=== PATIENT | female | born 1935 | race Caucasian/White ===

== ENCOUNTER 2017-05-08 12:41 | Inpatient (IN) | payer MEDICARE, OTHER ==
[~2017-05-08] VITALS: Ht 157.5 cm; Wt 80.3 kg
[~2017-05-08 12:41] MED LIST: ASP81TEC PO; BTH25T1 PO; CALC-793 PO; CELEBREX; CITA20TA4 PO; DCS100C PO; FEXO-104 PO; FEXO60TA PO; FURO20TA4 PO; HYDR1TAB75 PO; IBP800T PO; KCL20TCR PO; LVF250T PO; MELO-198 PO; NICO1PAT38 TD; POTA10CA43 PO; RLX60T PO
[2017-05-08] MEDS ORDERED: BACLOFEN 10 MG (LIORESAL) TAB PO PRN (14:45)
[2017-05-08] MEDS ORDERED: HYDROcodone/APAP 5 MG/325 MG (LORTAB) TAB PO PRN (14:45)
--- NOTE | 2017-05-08 15:12 | Physical Therapy Evaluation ---
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 Returned to [facility] and received pain medication and is currently at [facility] per family report Reviewed History: Yes Social History Home: Single Level Current Living Status: Other Family Entry Into Home: Stairs Without Railing PT Steps Into Home: 2 Prior/Core FIM Prior Level of Function Functional Anderson Measure 0=Not Assessed/NA 4=Minimal Assistance 1=Total Assistance 5=Supervision or Setup 2=Maximal Assistance 6=Modified Anderson 3=Moderate Assistance 7=Complete Anderson Bed Mobility: 7 Transfers (B,C,W/C) (FIM): 7 Gait: 7 PT Evaluation-Current Subjective Patient is very agreeable to participate with therapy. Patient denies cervical pain at this time. Pain Numeric Pain Scale: 0-No Pain Location: No Pain Reported Objective Patient Orientation: Normal For Age Problem Solving: Good ROM/Strength ROM Lower Extremities bilateral LE WNL Strenght Lower Extremities right knee flexion/extension 4+/5; hip flexion 4+/5 DF/PF 4+/5 left knee flexion/extension 4+/5;hip flexion 4+/5; DF/PF 4+/5 Integumentary/Posture Integumentary refer to nursing notes Sensory Vision: Functional Hearing: Functional Sensation Right Lower Extremit: Intact Sensation Left Lower Extremity: Intact Transfers Functional Anderson Measure 0=Not Assessed/NA 4=Minimal Assistance 1=Total Assistance 5=Supervision or Setup 2=Maximal Assistance 6=Modified Anderson 3=Moderate Assistance 7=Complete IndependenceIRFPAI Quality Coding Scale 6 Independent with activity with or without an assistive device 5 Patient requires set up or clean up by helper. Patient completes activity by themselves 4 Supervision or touching assist (CGA). [place] provide cues , steadying assist 3 The helper provides less than half the effort to complete the activity 2 The helper provides more than half the effort to complete the activity 1 Dependent. The helper does all the effort to complete an activity 7 Patient refused to complete or attempt activity 9 The patient did not perform the activity before the current illness or injury 88 Not attempted due to Medical conditions or safety concerns Transfers (B, C, W/C) (FIM): 6 Scootin Rollin Roll Left to Right (QC): 6 Supine to/from Sit: 7 Sit to/from Stand: 6 Sit to Lying (QC): 6 Lying to Sitting/Side of Bed(Q: 6 Sit to Stand (QC): 6 Chair/Was-rl-Cquxf Xfer(QC): 6 Car Transfer (QC): 6 Gait Does the Patient Walk?: Yes Mode of Locomotion: Walk Anticipated Mode of Locomotion: Walk Gait (FIM): 6 Distance (FIM): 3=150 ft Walk 10 feet (QC): 6 Walk 50 ft with 2 Turns(QC): 6 Walk 150 ft (QC): 6 Walking 10ft/uneven surface-QC: 6 Distance: 150' x 3 Gait Level of Assist: 6 Gait Assistive Device: FWW Comments/Gait Description safe, reciprocal pattern with FWW Stairs Stairs (FIM): 6 #of Steps: 12 Level of Assist: 6 1 Step (curb) (QC): 6 4 Steps (QC): 6 12 Steps (QC): 6 reciprocal pattern ascending and descending Balance Sitting Static: Normal Sitting Dynamic: Normal Standing Static: Normal Standing Dynamic: Normal Assessment/Needs 82 y.o. female, is currently at [facility] with all gross motor skills. Patient would benefit from FWW for use at home for stability and safety. Rehab Potential: Good PT Plan Treatment/Plan Treatment Plan: Discontinue PT, goals met Treatment Plan: Concurrent Therapy, Education, Functional Strength, Group Therapy, Gait, Safety, Therapeutic Exercise Treatment Duration: May 09, 2017 Frequency: 1 time per week Estimated Hrs Per Day: .25 hour per day Patient and/or Family Agrees t: Yes Discharge Recommendations Therapy D/C Recommendations: Home w/ Family Support Time/GCodes Time In: 1440 Time Out: 1455 Total Billed Treatment Time: 15 Total Billed Treatment 1 visit EVModC 15 min INO OLEARY PT May 08, 2017 15:12
--- NOTE | 2017-05-08 15:17 | ST Cognitive Linguistic Eval ---
Speech Evaluation-General Medical Diagnosis ACDF Procedure Onset Date: May 03, 2017 Therapy Diagnosis Therapy Diagnosis: Cognitive Linguistic Skills Grossly WNL Referral Referring Physician: Dr. Dio La Reason for Referral: Evaluation/Treatment Cognitive Evaluation Speech PLF-Current Status Prior Level of Function The patient denied prior challenges with speech, language, or cognition. Subjective The patient was recently admitted to [facility] following an ACDF procedure. The patient greeted the clinician appropriately and was agreeable to participation in the cognitive evaluation. Language Eval: Auditory Comprehends Simple Yes/No Ques: Functional Indent/Objects Multiple Suarez: Functional Ident/Pics in Multiple Suarez: Functional Follows 1-Step Commands: Functional Follows Complex Directions: Functional Follows General Conversations: Functional Language Eval: Verbal Language Completes Spontaneous Greeting: Functional Produces Auto, Serial Info: Functional Imitates Simple Words/Phrases: Functional Word Finding: Functional Requests Basic Needs: Functional States Basic Personal Info: Functional Expresses Complex Ideas: Functional Cognitive Patient Orientation The patient independently recalls name, location, rationale for rehabilitation, month, day of week, and year. Objective Cognitive Domain Attention: WNL Memory: Mild (The patient displays intermittent confusion, however, appears grossly normal and appropriate for age.) Problem Solving: Functional Objective Impression The patient displays cognitive linguistic skills grossly within normal limits for age and appropriate for completion of ADL's. Communication/Social Cognition Comprehension: 5 Expression: 6 Social Interaction: 7 Problem Solvin Memory: 5 Speech Patient Assess Expression of Ideas/Wants: Expression (4) Understanding Vebal Content: Understands (4) Brief Interview-Mental Status: Yes Repetition of Three Words: Three (3) Temporal Orientation: Year: Correct (3) Temporal Orientation: Month: Accurate within 5 days(2) Temporal Orientation: Day: Correct (1) Recall : Wear to say "Sock": Yes, no cue required (2) Recall : Color: Yes, no cue required (2) Recall : Bed: Yes, no cue required (2) Speech-Plan Treatment Plan Speech Therapy Treatment Plan: Discontinue ST Evaluation, only. Frequency: Modified Program (IRF) Estimated Hrs Per Day: Other Rehab Potential: Good Safety Risks/Education Teaching Recipient: Patient Teaching Methods: Discussion Response to Teaching: Verbalize Understanding Education Topics Provided: Results, Recommendations, Plan of Care Time Speech Therapy Time In: 14:55 Speech Therapy Time Out: 15:10 Total Billed Time: 15 Billed Treatment Time 1, SPSNDRYANN TROY May 08, 2017 15:17
[2017-05-08] MEDS ORDERED: CA C1TAB78 PO (15:52)
[2017-05-08] MEDS ORDERED: POTA10CA43 PO (15:52)
[2017-05-08] MEDS ORDERED: HYDR-3812 PO (15:52)
[2017-05-08] MEDS ORDERED: TERI202.4P SQ (15:52)
[2017-05-08] MEDS ORDERED: BACL10TA PO (15:52)
[2017-05-08] MEDS ORDERED: MULT-35 PO (15:52)
[2017-05-08] MEDS ORDERED: CHOL20003 PO (15:52)
--- NOTE | 2017-05-08 16:06 | Occupational Therapy Eval ---
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 Reviewed History: Yes Social History Home: Single Level Current Living Status: Other Family Entry Into Home: Stairs Without Railing Steps Into Home: 2 ADL-Prior Level of Function ADL PLOF Comments Pt reports being independent with self care and mobility prior to surgery. Pt states she is able to complete administrative and program specialist. Drives. Does not use any assistive devices. DME/Equipment: Bath Chair (shower stool), Grab Bars, Tub/Shower Drive Self: Yes OT Current Status Subjective Pt sitting EOB, agrees to therapy. Pt has no c/o pain at this time. Mental Status/Objective Patient Orientation: Person, Place, Situation Current Glasses/Contacts: Yes (reading) Hearing Aids: Yes Dentures/Partials: No Hand Dominance: Right Upper Extremity ROM Grossly WFL Upper Extremity Coordination Intact Upper Extremity Sensation Intact per pt report Upper Extremity Strength MMT not completed secondary to recent cervical surgery. Strength appears to be functional. ADL-Treatment ADL-Current ADL assessment to be completed. Functional Tiger Measure 0=Not Assessed/NA 4=Minimal Assistance 1=Total Assistance 5=Supervision or Setup 2=Maximal Assistance 6=Modified Tiger 3=Moderate Assistance 7=Complete IndependenceIRFPAI Quality Coding Scale 6 Independent with activity with or without an assistive device 5 Patient requires set up or clean up by helper. Patient completes activity by themselves 4 Supervision or touching assist (CGA). Jansen provide cues , steadying assist 3 The helper provides less than half the effort to complete the activity 2 The helper provides more than half the effort to complete the activity 1 Dependent. The helper does all the effort to complete an activity 7 Patient refused to complete or attempt activity 9 The patient did not perform the activity before the current illness or injury 88 Not attempted due to Medical conditions or safety concerns Education OT Patient Education: Rehab process Teaching Recipient: Patient Teaching Methods: Discussion Response to Teaching: Verbalize Understanding OT Short Term Goals Short Term Goals 1=Demonstrate adherence to instructed precautions during ADL tasks. 2=Patient will verbalize/demonstrate understanding of assistive devices/ modifications for ADL. 3=Patient will improve strength/tolerance for activity to enable patient to perform ADL's. OT Group Home Goals Brainer Goals Time Frame: May 09, 2017 Eating (FIM): 6 Eating (QC): 6 Groomin Oral Hygiene (QC): 6 Bathing(FIM): 6 Shower/Bathe Self (QC): 6 Upper Body Dressing(FIM): 6 Upper Body Dressing (QC): 6 Lower Body Dressing(FIM): 6 Lower Body Dressing (QC): 6 On/Off Footwear (QC): 6 Toileting(FIM): 6 Toileting Hygiene (QC): 6 Toilet/Commode Transfer(FIM): 6 Toilet/Commode Transfer (QC): 6 Shower Transfer(FIM): 6 1=Demonstrate adherence to instructed precautions during ADL tasks. 2=Patient will verbalize/demonstrate understanding of assistive devices/ modifications for ADL. 3=Patient will improve strength/tolerance for activity to enable patient to perform ADL's. OT Education/Plan Problem List/Assessment Will further assess ADLs. Discharge Recommendations Plan/Recommendations: Continue POC Treatment Plan/Plan of Care Treatment,Training & Education: Yes Patient would benefit from OT for education, treatment and training to promote independence in ADL's, mobility, safety and/or upper extremity function for ADL' s. Plan of Care: ADL Retraining Comment DIAZ to address ADLs Treatment Duration: May 09, 2017 Frequency: Modified Program (IRF) Estimated Hrs Per Day: Other Agreement: Yes Rehab Potential: Good Time/GCodes Start Time: 14:25 Stop Time: 14:40 Total Time Billed (hr/min): 15 Billed Treatment Time 1, visit, EVL(15minutes) PATEL ORTIZ OT May 08, 2017 16:06
--- NOTE | 2017-05-08 16:19 | Occupational Ther Daily Note ---
OT Current Status-Daily Note Subjective Pt alert, walking with FWW around [facility] area. Pt agreed to therapy. No c /o pain. Mental Status/Objective Patient Orientation: Person, Place, Time, Situation Functional Pratt Measure 0=Not Assessed/NA 4=Minimal Assistance 1=Total Assistance 5=Supervision or Setup 2=Maximal Assistance 6=Modified Pratt 3=Moderate Assistance 7=Complete Pratt ADL-Treatment Functional Pratt Measure 0=Not Assessed/NA 4=Minimal Assistance 1=Total Assistance 5=Supervision or Setup 2=Maximal Assistance 6=Modified Pratt 3=Moderate Assistance 7=Complete IndependenceIRFPAI Quality Coding Scale 6 Independent with activity with or without an assistive device 5 Patient requires set up or clean up by helper. Patient completes activity by themselves 4 Supervision or touching assist (CGA). [place] provide cues , steadying assist 3 The helper provides less than half the effort to complete the activity 2 The helper provides more than half the effort to complete the activity 1 Dependent. The helper does all the effort to complete an activity 7 Patient refused to complete or attempt activity 9 The patient did not perform the activity before the current illness or injury 88 Not attempted due to Medical conditions or safety concerns Grooming (FIM): 6 (Standing at sink, pt is able to complete by self.) Oral Hygiene (QC): 6 Bathing (FIM): 6 (Using shower bench, grabbars and hand held shower pt able to complete bathing by self.) Bathing Location: L Arm, R Arm, L Upper Leg, R Upper Leg, L Lower Leg ( including foot), R Lower Leg (including foot), Chest, Abdomen, Buttocks, Perineal Area Shower/Bathe Self (QC): 6 Upper Body (FIM): 6 (Pt able to transport clothing with FWW and dons/doff by self.) Upper Body Dressing (QC): 6 Lower Body Dressing (FIM): 6 (Pt able to transport clothing with FWW and dons/ doff by self.) Lower Body Dressing (QC): 6 (Pt able to transport clothing with FWW and dons/ doff by self.) On/Off Footwear (QC): 6 Toileting (FIM): 6 (Pt able to manipulate clothing and cleanse self using grabbars and FWW.) Toileting Hygiene (QC): 6 Transfers (B, C, W/C) (FIM): 6 (Using FWW, pt is able to complete by self.) Toilet/Commode Transfer (FIM): 6 (Using grabbars and FWW, pt is able to complete by self.) Toilet Transfer (QC): 6 Shower Transfer(FIM): 6 (Using grabbars and shower bench pt is able to complet by self.) OT Short Term Goals Short Term Goals 1=Demonstrate adherence to instructed precautions during ADL tasks. 2=Patient will verbalize/demonstrate understanding of assistive devices/ modifications for ADL. 3=Patient will improve strength/tolerance for activity to enable patient to perform ADL's. OT Alf Goals Urology Surgeon Goals 1=Demonstrate adherence to instructed precautions during ADL tasks. 2=Patient will verbalize/demonstrate understanding of assistive devices/ modifications for ADL. 3=Patient will improve strength/tolerance for activity to enable patient to perform ADL's. OT Education/Plan Discharge Recommendations Plan/Recommendations: Continue POC Treatment Plan/Plan of Care Patient would benefit from OT for education, treatment and training to promote independence in ADL's, mobility, safety and/or upper extremity function for ADL' s. Treatment Duration: May 09, 2017 Frequency: Modified Program (IRF) Estimated Hrs Per Day: Other Rehab Potential: Good Time/GCodes Start Time: 15:20 Stop Time: 16:00 Total Time Billed (hr/min): 40 Billed Treatment Time 1 visit-ADL 3 (40 min) JUSTIN EVERETT May 08, 2017 16:19
[2017-05-08 17:01] VITALS: BP 146/72
--- NOTE | 2017-05-08 17:54 | HISTORY AND PHYSICAL ---
DATE OF SERVICE: CHIEF COMPLAINT: Difficulty with walking. HISTORY OF PRESENT ILLNESS: The patient is an 82-year-old female who has been independent, but having increasing cervical spine pain that was impacting on her daily routine who was admitted to [facility] on 05/03 for anterior cervical complete diskectomy and fusion of C4-5 and C5-6, application of anterior [employer] instrumentation C4-C5, C5-C6, application of PEEK cervical interbody spacer, C4-C5, C5-C6, use of human allograft, use of local bone allograft, who did well postop, went home on Sunday, the , but had increasing pain, making it difficult for her to mobilize. She was reassessed at [facility] in [place], [place], where she had her surgery and readmitted for pain management. She had general debilitation from this and she is now referred to inpatient rehabilitation unit. Apparently, she has done well in the past 24 hours and is essentially modified independent and with low pain levels when utilizing hydrocodone/APAP. PAST MEDICAL HISTORY: Osteoporosis, osteoarthritis. PAST SURGICAL HISTORY: Complete hysterectomy in 2011, bladder sling 2011, hammertoe, cholecystectomy in 1975. ALLERGIES: CODEINE. FAMILY HISTORY: Cancer. SOCIAL HISTORY: History of tobaccoism, none now. Rare ethanol. Retired from [employer]. She presents to rehab unit with her spouse who is very supportive. They live in [place], [place]. She did not use a gait aid prior to this. REVIEW OF SYSTEMS: Mild neck pain. Slight gait imbalance. She is essentially modified independent with a wheeled walker at this point and using a soft cervical collar. MEDICATIONS: Forteo 250 mcg subcutaneously at bedtime for osteoporosis, KCl 10 mEq p.o. daily, calcium with magnesium 1 tablet p.o. daily, multivitamins 1 tablet p.o. daily, vitamin D3 2000 units p.o. weekly, baclofen 10 mg p.o. t.i.d. p.r.n. spasm, hydrocodone/APAP 5/325 mg 2 tablets p.o. q.4h. as needed for pain. PHYSICAL EXAMINATION: GENERAL: A pleasant female appearing her stated age, alert and oriented, in no acute distress. VITAL SIGNS: Within normal limits. She is afebrile. HEENT: Vision, speech and hearing are grossly intact. No oral lesion is noted. NECK: Incision site is healing well. Soft cervical collar in place. HEART: Regular rate and rhythm. CHEST: Clear. ABDOMEN: Soft, nontender. Bowel sounds present. EXTREMITIES: No leg edema. No calf tenderness. MUSCULOSKELETAL: The patient has functional active range of motion in all 4 extremities. NEUROLOGIC: Sensation is grossly intact to touch. Coordination intact. Cognition intact. Strength good throughout. IMPRESSION: 1. 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 2. Poorly controlled postop pain, now better controlled. 3. Osteoporosis, on Forteo. 4. Remote history of tobaccoism. 5. OA 6. Postop constipation PLAN: The patient at this point is admitted for overnight stay as she has made such a remarkable improvement, which was not evident on preadmission screen of the patient from outside facility. The patient will have the PT, OT assessment and any further recommendations for home exercise program. The patient will be provided a prescription referral for home health care and will have followup with ANAHY Meza of [facility] and Dr. Rachel, ortho spine. DIET: Regular. CODE STATUS: Full code. PROGNOSIS: Good for return to independent living with some assistance from spouse as needed. Home health care PT can advance her from WW to cane as appropriate.. POST-ADMISSION PHYSICIAN ASSESSMENT: The preadmission screen does not agree with the post-admission assessment at this point as the patient is essentially modified independent with good pain control. The patient was referred from an outside facility and the patient improved was not expected to improve so rapidly. It was difficult to poultry picker that the patient could have gone home directly with home health care. ESTIMATED LENGTH OF STAY: 24 hours with a discharge set for tomorrow with home health. She will follow up with her PA, Mabel Bermudez and Dr. Rachel, ortho spine. Job ID: [id number] DocumentID: [id number] Dictated Date: 05/08/2017 16:53:20 Surgical Instrument Maker Date: 05/08/2017 17:53:24 Dictated By: PHILLIP GRACE MD [facility]
[2017-05-08] MEDS: SENNA W/DOCUSATE (SENOKOT S) TABLET PO SCH (20:56)
[2017-05-08] MEDS ORDERED: TERIPARATIDE 600 MCG/2.4 ML (FORTEO) SYR SQ SCH (21:00)
[2017-05-09] MEDS ORDERED: SENNA W/DOCUSATE (SENOKOT S) TABLET ONE (05:43)
[2017-05-09 06:00] VITALS: BP 164/74
[2017-05-09] MEDS: SENNA W/DOCUSATE (SENOKOT S) TABLET PO SCH (06:05)
[2017-05-09] MEDS ORDERED: KCL 10 MEQ TAB (MICRO K) PO SCH (07:00)
[2017-05-09] MEDS ORDERED: MULTIVIT W/MINERALS TAB (THERAGRAN M) PO SCH (07:00)
[2017-05-09 08:16] VITALS: BP 154/78
[2017-05-09] MEDS ORDERED: LACT20SO2 PO (10:32)
--- NOTE | 2017-05-09 10:38 | Consultation-Hospitalist ---
HPI History of Present Illness: HPI/Chief Complaint CC: Medical management of severe debility following cervical spine surgery 2 weeks ago HPI: This is an 82-year-old white female known to me from admission after cervical spine surgery at [facility] and [place] with essentially minimal medical problems that include osteoporosis and osteoarthritis that presented to the inpatient rehabilitation facility after eating directly admitted after seen by Dr. Rachel and found to have failure to thrive and severe dehydration and severe pain. Apparently she had gone home with her indoor landscape architect but had gradually worsened to the point that she was unable to eat or drink was found to be dehydrated placed on IV fluids and admitted to [facility]. Her cousin was very apologetic about not being able to take care of her properly at home and patient was very distraught about being so debilitated. She was set up for inpatient rehabilitation transfer either to via [facility] or [place] and sister were no beds in [place] she was transferred to via [facility] yesterday but rapidly improved overnight to the extent that she no longer needed any type of therapy or assistance in the inpatient rehabilitation unit. Her recovery was unexpected and was maintained yesterday afternoon and today and although constipation continues to be an issue she does have bowel sounds on exam and ready to go home after the walker is delivered. Source: patient, RN/MD Exam Limitations: no limitations Date Seen 05/09/17 Attending Physician Dio La MD PCP No,Local Physician Referring Physician Date of Admission May 08, 2017 at 14:25 Home Medications & Allergies Home Medications Reviewed patient Home Medication Reconciliation Form Allergies Allergies Coded Allergies Codeine (Unverified Allergy06/10/10) Past Wiupate-Ogzoop-Jrmtlh Hx Patient Social History Marrital Status: single Employed/Student: retired Alcohol Use: Occasionally Uses Recreational Drug Use: No Smoking Status: Former Smoker Former Smoker, Quit: May 08, 2013 Physical Abuse Screen: No Sexual Abuse: No Recent Foreign Travel: No Contact w/other who traveled: No Recent Hopitalizations: Yes Recent Infectious Disease Expo: No Immunizations Up To Date Date of Pneumonia Vaccine: Feb 06, 2014 Date of Influenza Vaccine: Feb 18, 2017 Seasonal Allergies Seasonal Allergies: No Surgeries Yes (bladder sling, cervical spine) Respiratory No Cardiovascular No Neurological No Reproductive System Hx Reproductive Disorders: Yes (UTEROVAGINAL PROLAPSE) Genitourinary No Gastrointestinal No Musculoskeletal Yes (osteoarthritis) Osteoporosis Endocrine History of Endocrine Disorders: No HEENT History of HEENT Disorders: No Cancer No Psychosocial History of Psychiatric Problem: No Integumentary History of Skin or Integumenta: No Blood Transfusions History of Blood Disorders: No Adverse Reaction to a Blood Tr: No Family Medical History Family Hx: FH: cancer G8 SISTER Review of Systems Constitutional: see HPI, weakness EENTM: no symptoms reported Respiratory: no symptoms reported Cardiovascular: no symptoms reported Gastrointestinal: constipation Genitourinary: no symptoms reported Musculoskeletal: neck pain Skin: no symptoms reported Psychiatric/Neurological: No Symptoms Reported All Other Systems Reviewed Negative Unless Noted: Yes Physical Exam Physical Exam Vital Signs Vital Sign - Last 12Hours 05/08/17 05/08/17 16:12 17:01 Temp 97.8 Pulse 80 Resp 18 B/P (MAP) 146/72 (96) Pulse Ox 93 O2 Delivery Room Air Capillary Refill : General Appearance: No Apparent Distress, WD/WN, Chronically ill Eyes: Bilateral Eye Normal Inspection, Bilateral Eye PERRL HEENT: PERRL/EOMI, Normal ENT Inspection, Pharynx Normal Neck: Full Range of Motion, Normal Inspection, Non Tender, Supple, Carotid Bruit Respiratory: Chest Non Tender, Lungs Clear, Normal Breath Sounds, No Accessory Muscle Use, No Respiratory Distress Cardiovascular: Regular Rate, Rhythm, No Edema, No Gallop, No JVD, No Murmur, Normal Peripheral Pulses Gastrointestinal: Normal Bowel Sounds, No Organomegaly, No Pulsatile Mass, Non Tender, Soft Back: Normal Inspection, No CVA Tenderness, No Vertebral Tenderness, Decreased Range of Motion (of neck) Extremity: Normal Capillary Refill, Normal Inspection, Normal Range of Motion, Non Tender, No Calf Tenderness, No Pedal Edema Neurologic/Psychiatric: Alert, Oriented x3, No Motor/Sensory Deficits, Normal Mood/Affect Skin: Normal Color, Warm/Dry Lymphatic: No Adenopathy Assessment/Plan Admission Diagnosis Assessment: Severe debility following cervical spine surgery by Dr. Rachel 2 weeks ago at [facility] requiring inpatient rehabilitation management but recovery was extremely rapid and is discharged home today with home health and a walker Postop constipation managed with lactulose and prune juice and suppository with bowel sounds on exam Osteoporosis Osteoarthritis Poor memory recall Assessment and Plan Plan: Lactulose to [facility] Pain medication at discharge Home health Walker Monitor closely and discharge home Clinical Quality Measures DVT/VTE Risk/Contraindication: Risk Factor Score Per Nursin RFS Level Per Nursing on Admit: 2=Moderate CARLOS SAMPSON DO May 09, 2017 10:38
[2017-05-09 10:45] VITALS: BP 154/78
--- NOTE | 2017-05-09 11:00 | PM & R (SOAP) Progress Note ---
Subjective Time Seen by Provider: 09:45 Subjective/Events-last exam Patient was seen in her room this AM All set for discharge RX for DME and HHC provided Slept well Pain much decreased,Patient Modified Independent for mobility.DR Blanchard has seen. Objective Exam Last Set of Vital Signs Vital Signs Date Time Temp Pulse Resp B/P (MAP) Pulse Ox O2 Delivery O2 Flow Rate FiO2 05/09/17 10:45 88 20 154/78 98 Room Air 05/09/17 08:16 97.8 Capillary Refill : I&O Intake and Output 05/09/17 00:00 Intake Total 420 ml Balance 420 ml Intake Oral 420 ml # Voids 1 Daily Weight Change No General: Alert, Oriented X3, Cooperative, No Acute Distress HEENT: Atraumatic, PERRLA, EOMI, Mucous Memb Moist/[place] Neck: Other (Softc collar in place) Lungs: Clear to Auscultation Heart: Regular Rate Abdomen: Normal Bowel Sounds, Soft, No Tenderness Extremities: No Edema Neuro: Other (Goood strength throughout) Assessment/Plan Assessment S/P C spine surgery OSH for Cervical spinal stenosis Plan Discharge today to home with spouse in [facility] F/U with [facility] and DR Wilson neff and Dulce [facility] [place] See orders. PHILLIP GRACE MD May 09, 2017 11:00
--- NOTE | 2017-05-09 13:42 | Therapy Team Discharge Summary ---
Therapy Discharge Summary Discharge Recommendations Date of Discharge Therapy D/C Recommendations: Home w/ Family Support Occupational Therapy Pt was admitted to ARU following cervical discecotmy/fusion/failure to thrive. Pt was seen for OT evaluation and one treatment session to assess ADL and transfer safety. Pt demonstrated ability to perform basic ADLs and transfers with modified independence. Pt met OT goals and was discharged to home the day after admission with family member. D/C ARU OT at this time. OT Bilingual Sales Assistant Goals Usp Goals Time Frame: May 09, 2017 Eating (FIM): 6 Eating (QC): 6 Oral Hygiene (QC): 6 Grooming(FIM): 6 Bathing(FIM): 6 Shower/Bathe Self (QC): 6 Upper Body Dressing(FIM): 6 Upper Body Dressing (QC): 6 Lower Body Dressing(FIM): 6 Lower Body Dressing (QC): 6 On/Off Footwear (QC): 6 Toileting(FIM): 6 Toileting Hygiene (QC): 6 Toilet/Commode Transfer(FIM): 6 Toilet/Commode Transfer (QC): 6 Shower Transfer(FIM): 6 1=Demonstrate adherence to instructed precautions during ADL tasks. 2=Patient will verbalize/demonstrate understanding of assistive devices/ modifications for ADL. 3=Patient will improve strength/tolerance for activity to enable patient to perform ADL's. PATEL ORTIZ OT May 09, 2017 13:42
--- NOTE | 2017-05-10 04:29 | DISCHARGE SUMMARY ---
DATE OF SERVICE: HISTORY OF PRESENT ILLNESS: The patient is an 82-year-old female who has been independent, but having increasing cervical spine pain that impacted on her daily routine. She was admitted at [facility] on 05/03 for anterior cervical complete diskectomy and fusion of C4-5 and C5-6. The patient did well postop, went home on Sunday with her spouse, the , but had increasing pain making it difficult for her to mobilize. She was readmitted to [facility] in [place], [place] for further evaluation and treatment of pain management.She was found to be dehydrated and was provided with IV Fluids. She has general debilitation from all this and was referred to inpatient rehabilitation unit. PAST MEDICAL HISTORY: Osteoporosis, osteoarthritis, complete hysterectomy in 2011, bladder sling 2011, hammertoe, cholecystectomy in 1975 and postop constipation. MEDICAL COURSE: She was continued on her home meds and she reported to me a near zero level of pain and she had remarkable improvement and was modified independent for the most part for her basic ADLs and mobility skills and hoped to be discharged in the a.m., which she was. She was seen by Dr. Blanchard prior to discharge as well in lieu with her primary care provider, ANAHY Velazquez at [facility]. Her vital signs were stable. She was afebrile. She was normotensive. Her incision was healing well. REHABILITATION COURSE: She was assessed by speech therapy, PT and OT, provided with a home exercise program and essentially she was modified independent. Prescription for a wheeled walker and home health care was provided. DISCHARGE INSTRUCTIONS: Follow up with Dr. Rachel, Ortho Spine and ANAHY Velazquez, [facility]. Continue current diet. DISCHARGE MEDICATIONS: Forteo 250 mcg subcutaneous at bedtime for osteoporosis, KCl 10 mEq p.o. daily, calcium with magnesium 1 tablet p.o. daily, multivitamins 1 tablet p.o. daily, vitamin D3 2000 units p.o. q. weekly, baclofen 10 mg p.o. t.i.d. p.r.n. spasms, hydrocodone 8.5/325 two tablets p.o. q.4h as needed for pain, lactulose 30 grams p.o. b.i.d. p.r.n. constipation. DISCHARGE DIAGNOSES: 1. Rehabilitation ambulatory dysfunction secondary to the cervical spine stenosis status post diskectomy and fusion C4-5 and C5-6 with the above dated procedures as per history and physical. 2. Poorly controlled postop pain, now much better controlled. 3. Osteoporosis on Forteo. 4. Remote history of tobaccoism. 5. Postop constipation under treatment. 6. Osteoarthritis. CONDITION AT DISCHARGE: Improved and stable. PROGNOSIS: Rehab prognosis appears good for continued improvement at home with home health care and return to independent living. Hopefully, home health care PT will be able to advance her from wheeled walker to a cane soon. Job ID: [id number] DocumentID: [id number] Dictated Date: 05/09/2017 11:28:29 Instructional Media Services Technician Date: 05/10/2017 04:28:34 Dictated By: PHILLIP GRACE MD MTDD
[2017-05-12] MEDS ORDERED: IBUP-2055 PO (12:58)
[2017-05-12] MEDS ORDERED: ACET-77 PO (12:58)
[2017-05-12] MEDS ORDERED: POLY17PO23 PO (12:58)
[2017-05-12] MEDS ORDERED: AMOX-355 PO (12:58)
== END 2017-05-09 10:45 | disposition home health service (06) | DRG 561 ==
PROVIDERS: ADMIT Physical Medicine & Rehabilitation; ATTEND Physical Medicine & Rehabilitation
DX: Z47.89 Encounter for other orthopedic aftercare (principal); Z98.1 Arthrodesis status; G89.18 Other acute postprocedural pain; K59.09 Other constipation; M81.0 Age-related osteoporosis without current pathological fracture; M19.90 Unspecified osteoarthritis, unspecified site; Z87.891 Personal history of nicotine dependence

== ENCOUNTER 2017-05-11 12:35 | Observation (INO) | payer MEDICARE, OTHER ==
[~2017-05-11] VITALS: Ht 154.9 cm; Wt 68.0 kg
[~2017-05-11 12:35] MED LIST changes: +BACL10TA PO; +CA C1TAB78 PO; +CHOL20003 PO; +HYDR-3812 PO; +LACT20SO2 PO; +MULT-35 PO; +TERI202.4P SQ
[2017-05-11 13:32] VITALS: BP 172/90
[2017-05-11 13:35] LABS: BASOPHILS # (AUTO) 0.1 10^3/uL (0.0-0.1); BASOPHILS % (AUTO) 1 % (0-10); EOSINOPHILS # (AUTO) 0.2 10^3/uL (0.0-0.3); EOSINOPHILS % (AUTO) 2 % (0-10); LYMPHOCYTES # (AUTO) 2.2 X 10^3 (1.0-4.0); LYMPHOCYTES % (AUTO) 22 % (12-44); MEAN CORPUSCULAR HEMOGLOBIN 27 PG (25-34); MEAN CORPUSCULAR HGB CONC 33 G/DL (32-36); MEAN CORPUSCULAR VOLUME 82 FL (80-99); MEAN PLATELET VOLUME 9.5 FL (7.4-10.4); MONOCYTES # (AUTO) 1.1 X 10^3 (0.0-1.0); MONOCYTES % (AUTO) 12 % (0-12); NEUTROPHILS # (AUTO) 6.2 X 10^3 (1.8-7.8); NEUTROPHILS % (AUTO) 63 % (42-75); PLATELET COUNT 337 10^3/uL (130-400); RED BLOOD COUNT 4.98 10^6/uL (4.35-5.85); RED CELL DISTRIBUTION WIDTH 14.7 % (10.0-14.5); WHITE BLOOD COUNT 9.8 10^3/uL (4.3-11.0)
--- NOTE | 2017-05-11 13:48 | Diagnostic Imaging Report ---
PROCEDURE: CT head without contrast. TECHNIQUE: Multiple contiguous axial images were obtained through the brain without the use of intravenous contrast. INDICATION: Altered mental status, inability to eat. COMPARISON: None available. FINDINGS: No hyperdense hemorrhage or space-occupying mass. No hydrocephalus or midline shift. No evidence of large territorial infarct. Age-appropriate global atrophy. Mild periventricular hypoattenuation is most compatible with chronic microvascular ischemic disease. Bilateral cataract surgery was then performed. No acute calvarial abnormality. Paranasal sinuses and mastoid air cells are clear. IMPRESSION: No acute intracranial process by CT. Dictated by: Dictated on workstation # [id number]
--- NOTE | 2017-05-11 13:53 | Diagnostic Imaging Report ---
INDICATION: Unable to eat or drink after cervical fusion. COMPARISON: 08/19/2010. FINDINGS: Visible lungs are clear. Please note posterior lower lobes are poorly evaluated by portable radiography. No pleural effusion or pneumothorax. Heart is enlarged. Mild central vascular congestion. ACDF in the lower cervical spine. IMPRESSION: 1. No evidence of pneumonia or aspiration by portable radiography. Posterior lower lobes are poorly evaluated by portable radiography. 2. Cardiomegaly with central vascular congestion. No pulmonary edema. Dictated by: Dictated on workstation # [id number]
[2017-05-11 14:02] LABS: ALANINE AMINOTRANSFERASE 19 U/L (0-55); ANION GAP 11 MMOL/L (5-14); ASPARTATE AMINO TRANSFERASE 17 U/L (5-34); BILIRUBIN,TOTAL 0.8 MG/DL (0.1-1.0); BLOOD UREA NITROGEN 17 MG/DL (7-18); BUN/CREATININE RATIO 18; CALCIUM 9.7 MG/DL (8.5-10.1); CARBON DIOXIDE 23 MMOL/L (21-32); CHLORIDE 108 MMOL/L (98-107); CREATININE SERUM 0.94 MG/DL (0.60-1.30); GFR ESTIMATED 57; GLUCOSE 96 MG/DL (70-105); SODIUM 142 MMOL/L (135-145); TOTAL PROTEIN 7.2 GM/DL (6.4-8.2)
[2017-05-11 14:07] LABS: BILIRUBIN,URINE NEGATIVE (NEGATIVE); KETONES,URINE NEGATIVE (NEGATIVE); LEUKOCYTE ESTERASE ,URINE 1+ (NEGATIVE); NITRITE,URINE NEGATIVE (NEGATIVE); PH,URINE 7 (5-9); PROTEIN,URINE NEGATIVE (NEGATIVE); UROBILINOGEN,URINE NORMAL (NORMAL)
[2017-05-11 14:21] LABS: THYROID STIMULATING HORMONE 0.32 UIU/ML (0.35-4.94); TROPONIN I < 0.30 NG/ML (<0.30)
--- NOTE | 2017-05-11 14:53 | ED General ---
ED General Template History Present Illness CC: Confusion with severe constipation HPI: This is an 82yoWF who is known to me from [facility] [place] admit 05/03/17 when I was consulted for medical management following an uncomplicated cervical spine surgery and went home with her cousin, an elderly man, but was directly admitted to observation at [facility] 05/07/17 for failure to thrive and was not eating or drinking and had constipation. She was given IVF and miraculously recovered overnight but due to cousin not able to take care of her and she failed at home she was admitted to [facility] but upon arrival there she was so functional she no longer met criteria so she was provided a walker and was set up and went home the next day 05/09/17 but then the nurse went to see her today and reported she was unable to manage at home was constantly moaning and was not eating or drinking and was severely constipated even after using Lactulose which I sent into pharmacy. Upon arrival to ER she was moaning and confused. Cousin reports she does get confused at times before the spine surgery. Her labs were reviewed and CT head was negative so she has been admitted to observation for severe constipation and confusion and will be screened for SBH at [facility] and SW has been updated on the need for formal DPOA papers. Initial Time/Exam Patient 1300 Allergy/Medications Allergies: Coded Allergies: codeine (Unverified Allergy, Unknown, 05/11/17) Baclofen (Baclofen) 10 Mg Tablet, 10 MG PO Q8H PRN for PAIN-MILD, (Reported) Ca Carb & Gluc/Mag Ox & Gluc (Calcium Magnesium Caplet) 1 Each Tablet, 1 TAB PO DAILY, (Reported) Cholecalciferol (Vitamin D3) (Vitamin D3) 2,000 Unit Capsule, 2,000 UNIT PO DAILY, (Reported) Hydrocodone/Acetaminophen (Hydrocodon -Acetaminophen 5-325) 1 Each Tablet, 1-2 TAB PO Q4H PRN for PAIN-MODERATE, (Reported) Lactulose (Lactulose) 20 Gm/30 Ml Solution, 20 GM PO TID, #8 Prescribed by: CARLOS SAMPSON on 05/09/17 1032 Multivitamin (Daily Multiple Vitamin) 1 Each Tablet, 1 TAB PO DAILY, (Reported) Potassium Chloride (Potassium Chloride) 10 Meq Capsule.er, 10 MEQ PO DAILY, ( Reported) Teriparatide (Forteo) 600 Mcg/2.4 Ml Syr, 20 MCG SQ HS, (Reported) Review Of Systems + confusion + loss of appetite + constipation PMH Past Medical Hx DJD spine OA Memory loss? Physicial Exam AFVSS, Pleasant, moaning, chronically ill, in soft cervical spine collar, cousin at bedside, O x ~ 3 but poor recall RRR, CTAB no rales noted + BS soft non-tender No edema, nl ROM Progress/Results/Core Measures Results/Orders Lab Results Laboratory Tests Test 05/11/17 13:27 05/11/17 14:00 Range/Units White Blood Count 9.8 4.3-11.0 10^3/uL Red Blood Count 4.98 4.35-5.85 10^6/uL Hemoglobin 13.4 11.5-16.0 G/DL Hematocrit 41 35-52 % Mean Corpuscular Volume 82 80-99 FL Mean Corpuscular Hemoglobin 27 25-34 PG Mean Corpuscular Hemoglobin Concent 33 32-36 G/DL Red Cell Distribution Width 14.7 H 10.0-14.5 % Platelet Count 337 130-400 10^3/uL Mean Platelet Volume 9.5 7.4-10.4 FL Neutrophils (%) (Auto) 63 42-75 % Lymphocytes (%) (Auto) 22 12-44 % Monocytes (%) (Auto) 12 0-12 % Eosinophils (%) (Auto) 2 0-10 % Basophils (%) (Auto) 1 0-10 % Neutrophils # (Auto) 6.2 1.8-7.8 X 10^3 Lymphocytes # (Auto) 2.2 1.0-4.0 X 10^3 Monocytes # (Auto) 1.1 H 0.0-1.0 X 10^3 Eosinophils # (Auto) 0.2 0.0-0.3 10^3/uL Basophils # (Auto) 0.1 0.0-0.1 10^3/uL Sodium Level 142 135-145 MMOL/L Potassium Level 4.0 3.6-5.0 MMOL/L Chloride Level 108 H 98-107 MMOL/L Carbon Dioxide Level 23 21-32 MMOL/L Anion Gap 11 5-14 MMOL/L Blood Urea Nitrogen 17 7-18 MG/DL Creatinine 0.94 0.60-1.30 MG/DL Estimat Glomerular Filtration Rate 57 BUN/Creatinine Ratio 18 Glucose Level 96 70-105 MG/DL Calcium Level 9.7 8.5-10.1 MG/DL Total Bilirubin 0.8 0.1-1.0 MG/DL Aspartate Amino Transf (AST/SGOT) 17 5-34 U/L Alanine Aminotransferase (ALT/SGPT) 19 0-55 U/L Alkaline Phosphatase 58 40-136 U/L Troponin I < 0.30 <0.30 NG/ML Total Protein 7.2 6.4-8.2 GM/DL Albumin 4.0 3.2-4.5 GM/DL Thyroid Stimulating Hormone (TSH) 0.32 L 0.35-4.94 UIU/ML Urine Color YELLOW Urine Clarity CLEAR Urine pH 7 5-9 Urine Specific [place] 1.010 L 1.016-1.022 Urine Protein NEGATIVE NEGATIVE Urine Glucose (UA) NEGATIVE NEGATIVE Urine Ketones NEGATIVE NEGATIVE Urine Nitrite NEGATIVE NEGATIVE Urine Bilirubin NEGATIVE NEGATIVE Urine Urobilinogen NORMAL NORMAL MG/DL Urine Leukocyte Esterase 1+ H NEGATIVE Urine RBC (Auto) NEGATIVE NEGATIVE Urine RBC NONE /HPF Urine WBC 2-5 /HPF Urine Crystals PRESENT H /LPF Urine Amorphous Sediment MOD OZ PHOSPHATE H /LPF Urine Bacteria MODERATE H /HPF Urine Casts NONE /LPF Urine Mucus NEGATIVE /LPF Urine Culture Indicated YES Urine Opiates Screen NEGATIVE NEGATIVE Urine Oxycodone Screen NEGATIVE NEGATIVE Urine Methadone Screen NEGATIVE NEGATIVE Urine Propoxyphene Screen NEGATIVE NEGATIVE Urine Barbiturates Screen NEGATIVE NEGATIVE Ur Tricyclic Antidepressants Screen NEGATIVE NEGATIVE Urine Phencyclidine Screen NEGATIVE NEGATIVE Urine Amphetamines Screen NEGATIVE NEGATIVE Urine Methamphetamines Screen NEGATIVE NEGATIVE Urine Benzodiazepines Screen NEGATIVE NEGATIVE Urine Cocaine Screen NEGATIVE NEGATIVE Urine Cannabinoids Screen NEGATIVE NEGATIVE My Orders Orders - SAMPSON,CARLOS DO Cbc With Automated Diff (05/11/17 13:00) Comprehensive Metabolic Panel (05/11/17 13:00) Thyroid Stimulating Hormone (05/11/17 13:00) Ua Culture If Indicated (05/11/17 13:00) Ekg Tracing (05/11/17 13:00) Troponin I (05/11/17 13:00) Chest 1 View, Ap/Pa Only (05/11/17 13:00) Drug Screen Stat (Urine) (05/11/17 13:00) Ct Head Wo (05/11/17 13:00) Urine Culture (05/11/17 14:00) 2g Potassium (05/11/17 Dinner) Admission (Physician Order) (05/11/17 15:31) Iv/Invasive Line Insertion .on IV start (05/11/17 15:31) General/Regular (05/11/17 Dinner) Activity (05/11/17 ) Ns Iv 1000 Ml (Sodium Chloride 0.9%) (05/11/17 15:31) Intake & Output ,14, (05/11/17 15:31) Vital Signs: Every 4 Hours (05/11/17 15:31) Patient May Use Own Meds, All (Patient M (05/11/17 15:45) Acetaminophen Tablet (Tylenol Tablet) (05/11/17 15:45) Ibuprofen Tablet (Motrin Tablet) (05/11/17 15:45) Alprazolam Tablet (Xanax Tablet) (05/11/17 15:45) Lactulose Oral Solution (Enulose Oral So (05/11/17 15:45) Fentanyl Injection (Sublimaze Injection (05/11/17 15:45) Ondansetron Injection (Zofran Injectio (05/11/17 15:45) Polyethylene Glycol Powder Pkt (Miralax (05/11/17 21:00) Soap Suds Enema Until Clear (05/11/17 15:31) Code/Resuscitation (05/11/17 15:31) Initiate Admission Nursing Pro .admission (05/11/17 15:31) Ambulate TID (05/11/17 16:15) Vital Signs/I&O Vital Sign - Last 12Hours 05/11/17 05/11/17 05/11/17 12:35 13:32 15:20 Temp 98.2 Pulse 63 67 Resp 18 18 B/P (MAP) 162/104 (123) 172/90 (117) Pulse Ox 98 98 O2 Delivery Room Air Blood Pressure Mean: 117 ECG Initial ECG Rhythm: Normal Sinus Initial ECG Impression: Normal Initial ECG Comparisson: No Previous ECG Available Departure Impression Impression: Primary Impression: Constipation Additional Impressions: Confusion Cervical spinal stenosis Disposition: 09 ADMITTED INPATIENT Condition: Unchanged Departure-Patient Inst. Referrals: NO,LOCAL PHYSICIAN (PCP/Family) Primary Care Physician CARLOS SAMPSON DO May 11, 2017 14:53
[2017-05-11] MEDS ORDERED: ONDANSETRON 4 MG/2 ML (SDV) Z0FRAN IVP PRN (15:45)
[2017-05-11] MEDS ORDERED: ACETAMINOPHEN 500 MG TAB (TYLENOL) PO PRN (15:45)
[2017-05-11] MEDS ORDERED: LACTULOSE SYRUP 10GM/15ML (ENULOSE) 30ML UDC PO PRN (15:45)
[2017-05-11] MEDS ORDERED: ALPRAZolam 0.25 MG (XANAX) TAB PO PRN (15:45)
[2017-05-11] MEDS ORDERED: PATIENT MAY USE OWN MEDS, ALL PO SCH (15:45)
[2017-05-11] MEDS ORDERED: IBUPROFEN TABLET 200 MG TAB PO PRN (15:45)
[2017-05-11] MEDS: NS IV 1000 ML 1,000 ML IV SCH (15:52)
[2017-05-11 16:00] VITALS: BP 155/94
[2017-05-11 19:35] VITALS: BP 133/81
[2017-05-11] MEDS: POLYETHYLENE GLYCOL 17 GM (MIRALAX) PACK PO SCH (22:11)
[2017-05-12] VITALS: BP 146/71
[2017-05-12] MEDS: fentaNYL INJECTION 100 MCG/2 ML AMP IVP PRN ×2 (03:50→06:26)
[2017-05-12 03:52] VITALS: BP 119/56
[2017-05-12] MEDS: NS IV 1000 ML 1,000 ML IV SCH (05:21)
[2017-05-12 08:00] VITALS: BP 157/74
[2017-05-12] MEDS: POLYETHYLENE GLYCOL 17 GM (MIRALAX) PACK PO SCH (09:07)
[2017-05-12] MEDS ORDERED: cefTRIAXone INJECTION 1,000 MG in NS (IVPB) 50 ML IV SCH (11:30)
[2017-05-12] MEDS ORDERED: KCL 10 MEQ TAB (MICRO K) PO SCH ×2 (12:04→12:24)
[2017-05-12] MEDS ORDERED: HYDROcodone/APAP 5 MG/325 MG (LORTAB) TAB PO PRN (12:15)
--- NOTE | 2017-05-12 12:51 | Short Stay Summary-Hospitalist ---
HPI History of Present Illness: HPI/Chief Complaint CC: Confusion with severe constipation HPI: This is an 82-year-old white female that is known to me from cervical spine surgery consultation and [place] on 05/03/17 then again on direct admission on 05/07/17 to [place] for failure to thrive who was transferred to inpatient rehabilitation at [facility] on 05/08/17 of which I arranged and was seen by me in consultation the next day on 05/09/17 before she went home because she was so functional but then once again failed at home came into the ER after home health nurse assessed her yesterday and I actually saw her in the ER and found her to have similar presentation as before and assess 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 CT scan of brain revealed no acute abnormality labs were reviewed and the only thing that was abnormal was severe constipation so she was admitted for observation placed on soapsuds enema which resulted in a large bowel movement and another one this morning so that issue is resolved now. We're in the midst of transfer to the senior unit in [place] due to the fact of confusion comes and goes and causes her to report pain that is out of proportion to expected pain from cervical spine surgery performed over 2 weeks ago. UTI will be treated but it was such an early onset infection will only need brief amount of time on abx to fully treat. Source: patient, family Exam Limitations: no limitations Date Seen 05/12/17 Time Seen by Provider: 11:00 Attending Physician Simran Blanchard DO PCP No,Local Physician Referring Physician Date of Admission May 11, 2017 at 14:49 Home Medications & Allergies Home Medications Reviewed patient Home Medication Reconciliation Form Allergies Allergies Coded Allergies codeine (Unverified Allergy, Unknown, 05/11/17) Past Kniezqc-Aibliq-Xzxrfr Hx Patient Social History Marrital Status: Employed/Student: retired Alcohol Use: Denies Use Recreational Drug Use: No Smoking Status: Never a Smoker Former Smoker, Quit: May 08, 2013 Physical Abuse Screen: No Sexual Abuse: No Recent Foreign Travel: No Contact w/other who traveled: No Recent Hopitalizations: Yes Recent Infectious Disease Expo: No Immunizations Up To Date Date of Pneumonia Vaccine: Feb 06, 2014 Date of Influenza Vaccine: Feb 18, 2017 Seasonal Allergies Seasonal Allergies: No Surgeries Yes (bladder sling, cervical spine 05/03/17) Respiratory No Cardiovascular No Neurological No Reproductive System 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) Genitourinary No Gastrointestinal No Musculoskeletal Yes (osteoarthritis) Osteoporosis, Arthritis Endocrine History of Endocrine Disorders: No HEENT History of HEENT Disorders: No Cancer No Psychosocial History of Psychiatric Problem: No Integumentary History of Skin or Integumenta: No Blood Transfusions History of Blood Disorders: No Adverse Reaction to a Blood Tr: No Family Medical History Family Hx: FH: cancer G8 SISTER Review of Systems Constitutional: see HPI, weakness EENTM: no symptoms reported Respiratory: no symptoms reported Cardiovascular: no symptoms reported Gastrointestinal: constipation Genitourinary: no symptoms reported Musculoskeletal: neck pain Skin: no symptoms reported Psychiatric/Neurological: Depressed, Emotional Problems All Other Systems Reviewed Negative Unless Noted: Yes Physical Exam Physical Exam Vital Signs Vital Sign - Last 12Hours 05/11/17 12:35 Temp 98.2 Pulse 63 Resp 18 B/P (MAP) 162/104 (123) Pulse Ox 98 O2 Delivery Room Air Capillary Refill : Less Than 3 Seconds General Appearance: No Apparent Distress, WD/WN, Chronically ill Eyes: Bilateral Eye Normal Inspection, Bilateral Eye PERRL HEENT: PERRL/EOMI, Normal ENT Inspection, Pharynx Normal Neck: Full Range of Motion, Non Tender, Supple, Carotid Bruit, Limited Range of Motion (due to cervical spine surgery) Respiratory: Chest Non Tender, Lungs Clear, Normal Breath Sounds, No Accessory Muscle Use, No Respiratory Distress Cardiovascular: Regular Rate, Rhythm, No Edema, No Gallop, No JVD, No Murmur, Normal Peripheral Pulses Gastrointestinal: Normal Bowel Sounds, No Organomegaly, No Pulsatile Mass, Non Tender, Soft Back: Normal Inspection, No CVA Tenderness, No Vertebral Tenderness Extremity: Normal Capillary Refill, Normal Inspection, Normal Range of Motion, Non Tender, No Calf Tenderness, No Pedal Edema Neurologic/Psychiatric: Alert, Oriented x3, No Motor/Sensory Deficits, Depressed Affect Skin: Normal Color, Warm/Dry Lymphatic: No Adenopathy Results Results/Procedures Lab Laboratory Tests 05/11/17 13:27 Short Stay Diagnosis Discharge Diagnosis-Short Stay Admission Diagnosis Assessment: Failure to thrive and failed discharge home 3 in the past 2 weeks following uncomplicated cervical spine surgery on 05/03/17 who presents with severe constipation can is now resolved and early UTI but 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 in need of senior behavioral unit evaluation Severe osteoporosis on [place] every day Osteoarthritis Final Discharge Diagnosis Assessment: Failure to thrive and failed discharge home 3 in the past 2 weeks following uncomplicated cervical spine surgery on 05/03/17 who presents with severe constipation can is now resolved and early UTI but 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
[2017-05-12] MEDS ORDERED: AMOX-355 PO (12:58)
[2017-05-12] MEDS ORDERED: IBUP-2055 PO (12:58)
[2017-05-12] MEDS ORDERED: ACET-77 PO (12:58)
[2017-05-12] MEDS ORDERED: POLY17PO23 PO (12:58)
[2017-05-12 16:00] VITALS: BP 132/85
[2017-05-12 16:30] VITALS: BP 132/85
[2017-05-12] MEDS ORDERED: TERIPARATIDE 600 MCG/2.4 ML (FORTEO) SYR SQ SCH (21:00)
== END 2017-05-12 12:58 ==
LOC: EDUNIT# 12:35 → ER 12:39 → 4TH 14:49 → UNDOADMOB 14:49 → 4TH 15:30 → UNDODISOB 05-12 16:30
PROVIDERS: ADMIT Internal Medicine; ATTEND Internal Medicine
DX: K59.00 Constipation, unspecified (principal); R62.7 Adult failure to thrive; N39.0 Urinary tract infection, site not specified; M81.0 Age-related osteoporosis without current pathological fracture; M19.91 Primary osteoarthritis, unspecified site; Z79.899 Other long term (current) drug therapy
CPT/HCPCS: 36415; 51701; 70450; 71010; 80053; 80306; 81000; 84443; 84484; 85025; 87088; 87186; 93005; G0378

== ENCOUNTER 2017-06-22 10:31 | Observation (INO) | payer MEDICARE, OTHER ==
[~2017-06-22] VITALS: Ht 154.9 cm; Wt 83.1 kg
[~2017-06-22 10:31] MED LIST changes: +ACET-77 PO; +ACHD5005 PO; +AMOX-355 PO; -HYDR-3812 PO; +IBUP-2055 PO; +POLY17PO23 PO
[2017-06-22] MEDS ORDERED: NS IV 1000 ML 1,000 ML IV SCH (10:41)
[2017-06-22 12:20] VITALS: BP 186/88
--- NOTE | 2017-06-22 12:30 | History & Physical-Hospitalist ---
HPI History of Present Illness: HPI/Chief Complaint CC: AMS HPI: This is a 82-year-old white female known to me from [place] admission first 2 [place] at [facility] following an uncomplicated lumbar spine surgery but began to have failure to thrive and altered mental status and readmitted and placed in inpatient rehabilitation after severe constipation resolved and she was doing so well she was then discharged straight home the day after admission but then presented again later that week from home health referral due to altered mental status and severe constipation and that resolved with aggressive soapsuds enemas and patient was placed in senior behavioral unit [facility] due to confusion and suspicion for dementia. She was discharged after a very short course at [place] and was sent home but then she was admitted to [facility] after altered mental status found in the ER and constipation but she did not recover and needed further workup with CT scanning and was referred to via [facility] as a direct admission on the one call system. At this current time she is confused but alert and awake complaining of abdominal pain but all labs and x-rays were normal at [facility]. I have consulted with Dr. Benjamin who will see her in consultation because she needs a colonoscopy since this is the third time she has had this similar episode. Source: RN/MD Exam Limitations: clinical condition (confusion) Date Seen 06/22/17 Time Seen by Provider: 12:30 Attending Physician Simran Blanchard DO PCP No,Local Physician Referring Physician Date of Admission Home Medications & Allergies Home Medications Reviewed patient Home Medication Reconciliation Form Allergies Allergies Coded Allergies codeine (Unverified Allergy, Unknown, 05/11/17) Past Fhyqyja-Ojibep-Bmwngs Hx Patient Social History Marrital Status: single Employed/Student: retired Former Smoker, Quit: May 08, 2013 Recent Foreign Travel: No Contact w/other who traveled: No Recent Hopitalizations: Yes Immunizations Up To Date Date of Pneumonia Vaccine: Feb 06, 2014 Date of Influenza Vaccine: Feb 18, 2017 Seasonal Allergies Seasonal Allergies: No Surgeries Yes (bladder sling, cervical spine 05/03/17) Respiratory No Cardiovascular No Neurological Yes Dementia Reproductive System 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) Genitourinary No Gastrointestinal Yes Chronic Constipation Musculoskeletal Yes (osteoarthritis) Osteoporosis, Arthritis Endocrine History of Endocrine Disorders: No HEENT History of HEENT Disorders: No Cancer No Psychosocial History of Psychiatric Problem: No Integumentary History of Skin or Integumenta: No Blood Transfusions History of Blood Disorders: No Adverse Reaction to a Blood Tr: No Family Medical History Family Hx: FH: cancer G8 SISTER Review of Systems ROS-Unable to Obtain: unable to obtain Constitutional: see HPI Physical Exam Physical Exam Vital Signs Capillary Refill : General Appearance: WD/WN, Chronically ill, Moderate Distress (due to abdominal and confusion, does not remember me) Eyes: Bilateral Eye Normal Inspection, Bilateral Eye PERRL HEENT: PERRL/EOMI, Normal ENT Inspection, Pharynx Normal Neck: Full Range of Motion, Normal Inspection, Non Tender, Supple, Carotid Bruit Respiratory: Chest Non Tender, Lungs Clear, Normal Breath Sounds, No Accessory Muscle Use, No Respiratory Distress Cardiovascular: Regular Rate, Rhythm, No Edema, No Gallop, No JVD, No Murmur, Normal Peripheral Pulses Gastrointestinal: Normal Bowel Sounds, No Organomegaly, No Pulsatile Mass, Soft Back: Normal Inspection, No CVA Tenderness, No Vertebral Tenderness Extremity: Normal Capillary Refill, Normal Inspection, Normal Range of Motion, Non Tender, No Calf Tenderness, No Pedal Edema Neurologic/Psychiatric: Alert, No Motor/Sensory Deficits, Normal Mood/Affect, Disoriented x3 Skin: Normal Color, Warm/Dry Lymphatic: No Adenopathy Assessment/Plan Admission Diagnosis Altered mental status Severe constipation history causing altered mental status third episode Underlying mild dementia Dehydration Cervical spine surgery last month Assessment and Plan Plan: Aggressive soapsuds enemas and check abdominal x-ray and consult Dr. Benjamin Maintain IV fluid Check CT head Recheck labs and UA Pain control Delirium will likely resolve once constipation is resolved May need CT scan abdomen SIMRAN BLANCHARD DO Jun 22, 2017 12:30
[2017-06-22 12:40] LABS: BASOPHILS # (AUTO) 0.1 10^3/uL (0.0-0.1); BASOPHILS % (AUTO) 1 % (0-10); EOSINOPHILS # (AUTO) 0.2 10^3/uL (0.0-0.3); EOSINOPHILS % (AUTO) 2 % (0-10); HEMATOCRIT 41 % (35-52); HEMOGLOBIN 13.6 G/DL (11.5-16.0); LYMPHOCYTES # (AUTO) 1.9 X 10^3 (1.0-4.0); LYMPHOCYTES % (AUTO) 18 % (12-44); MEAN CORPUSCULAR HEMOGLOBIN 27 PG (25-34); MEAN CORPUSCULAR HGB CONC 33 G/DL (32-36); MEAN CORPUSCULAR VOLUME 82 FL (80-99); MEAN PLATELET VOLUME 9.3 FL (7.4-10.4); MONOCYTES # (AUTO) 1.2 X 10^3 (0.0-1.0); MONOCYTES % (AUTO) 11 % (0-12); NEUTROPHILS # (AUTO) 7.3 X 10^3 (1.8-7.8); NEUTROPHILS % (AUTO) 69 % (42-75); PLATELET COUNT 291 10^3/uL (130-400); RED BLOOD COUNT 4.99 10^6/uL (4.35-5.85); RED CELL DISTRIBUTION WIDTH 15.6 % (10.0-14.5); WHITE BLOOD COUNT 10.6 10^3/uL (4.3-11.0)
[2017-06-22 12:58] LABS: ALBUMIN 3.9 GM/DL (3.2-4.5); BILIRUBIN,TOTAL 1.5 MG/DL (0.1-1.0); CALCIUM 9.4 MG/DL (8.5-10.1); CREATININE SERUM 1.03 MG/DL (0.60-1.30); POTASSIUM 3.9 MMOL/L (3.6-5.0)
--- NOTE | 2017-06-22 12:59 | Diagnostic Imaging Report ---
PROCEDURE: CT head without contrast. TECHNIQUE: Multiple contiguous axial images were obtained through the brain without the use of intravenous contrast. INDICATION: Altered mental status and confusion. Comparison is made with prior head CT from 05/11/2017. The study is moderately compromised due to patient motion. There is periventricular hypodensity noted consistent with senescent change. No sulcal effacement is identified. There is no midline shift. No acute intra-axial or extra-axial hemorrhage is detected. The cisterns are patent. The visualized paranasal sinuses are clear. IMPRESSION: Senescent changes. No acute intracranial process is detected. Dictated by: Dictated on workstation # [id number]
[2017-06-22] MEDS ORDERED: CATHETER FLUSH 10 ML SYR IV PRN (13:15)
--- NOTE | 2017-06-22 13:16 | Diagnostic Imaging Report ---
INDICATION: Altered mental status and constipation. TIME OF EXAM: 1:11 p.m. Comparison is made with prior chest from 05/11/2017. The heart is enlarged but stable. Lungs appear to be clear. No effusion or pneumothorax is seen. There are postop changes in the lower cervical spine. No free air is identified. No pathologic calcifications are seen. There are postop changes in the pelvis. Bowel gas pattern appears nonobstructed. No bowel wall thickening or pneumatosis is detected. IMPRESSION: No acute feature is identified. Dictated by: Dictated on workstation # [id number]
[2017-06-22] MEDS ORDERED: CHOL500049 PO (13:43)
[2017-06-22] MEDS ORDERED: BACL10TA PO (13:43)
[2017-06-22] MEDS ORDERED: cefTRIAXone INJECTION 1,000 MG in NS (IVPB) 50 ML IV ONE (14:00)
[2017-06-22] MEDS ORDERED: cefTRIAXone 1 GM (ROCEPHIN) VIAL ONE (14:04)
[2017-06-22 14:07] LABS: BILIRUBIN,URINE NEGATIVE (NEGATIVE); CLARITY,URINE CLEAR; COLOR,URINE YELLOW; GLUCOSE, URINE (UA) NEGATIVE (NEGATIVE); KETONES,URINE NEGATIVE (NEGATIVE); LEUKOCYTE ESTERASE ,URINE NEGATIVE (NEGATIVE); NITRITE,URINE NEGATIVE (NEGATIVE); PH,URINE 7 (5-9); PROTEIN,URINE NEGATIVE (NEGATIVE); UROBILINOGEN,URINE NORMAL (NORMAL)
[2017-06-22] MEDS ORDERED: NS (IVPB) 50 ML ONE (14:07)
--- NOTE | 2017-06-22 14:07 | Consultation ---
History of Present Illness History of Present Illness Patient Consulted On(claudia/time) 06/22/17 14:01 Time Seen by Provider: 13:06 History of Present Illness Surgery asked to consult regarding constipation; possible abdominal pain. HPI per Medicine: HPI: This is a 82-year-old white female known to me from April admission first [place] at [facility] following an uncomplicated spine surgery but began to have failure to thrive and altered mental status and readmitted and placed in inpatient rehabilitation after severe constipation resolved and she was doing so well she was then discharged straight home the day after admission but then presented again later that week from home health referral due to altered mental status and severe constipation and that resolved with aggressive soapsuds enemas and patient was placed in senior behavioral unit [facility] due to confusion and suspicion for dementia. She was discharged after a very short course at [place] and was sent home but then she was admitted to [facility] after altered mental status found in the ER and constipation but she did not recover and needed further workup with CT scanning and was referred to via [facility] as a direct admission on the one call system. At this current time she is confused but alert and awake complaining of abdominal pain but all labs and x-rays were normal at [facility]. I have consulted with Dr. Benjamin who will see her in consultation because she needs a colonoscopy since this is the third time she has had this similar episode. When speaking to her caregiver (cousin) and pt's daughter; she was doing fine until last night.....when she suddenly just started moaning in pain. She went to [place] over the weekend and walked around without problems; saw Dr. Rachel on Sunday and was told to take off soft collar and given Rx for Baclofen. Did fine by herself Sunday and (during day) , doing chores around the house. Family members think this has something to do with pain meds or muscle relaxants; "because same thing happened last time she was taking the muscle relaxants and pain meds". When seen now, pt can't do more than moan in pain and say "it hurts". She was unable to say where pain was; but finally, when daughter asked about stomach, body and neck.....she answered yes to pain being in the neck. Allergies and Home Medications Allergies Coded Allergies: codeine (Unverified Allergy, Unknown, 05/11/17) Home Medications Acetaminophen 500 Mg Tablet, 500 MG PO Q4H PRN for PAIN-MILD for 30 Days Prescribed by: CARLOS SAMPSON on 05/12/17 1258 Baclofen 10 Mg Tablet, 10 MG PO TID, (Reported) Ca Carb & Gluc/Mag Ox & Gluc 1 Each Tablet, 1 TAB PO DAILY, (Reported) Cholecalciferol (Vitamin D3) 2,000 Unit Capsule, 2,000 UNIT PO DAILY, (Reported) Cholecalciferol (Vitamin D3) 50,000 Unit Capsule, 50,000 UNIT PO WEEK, (Reported ) Hydrocodone Bit/Acetaminophen 1 Each Tablet, 1-2 TAB PO Q4H PRN for PAIN- MODERATE, (Reported) Ibuprofen 200 Mg Tablet, 400 MG PO Q6H PRN for PAIN-MILD for 30 Days Prescribed by: CARLOS SAMPSON on 05/12/17 1258 Lactulose 20 Gm/30 Ml Solution, 20 GM PO TID, #8 Prescribed by: CARLOS SAMPSON on 05/09/17 1032 Multivitamin 1 Each Tablet, 1 TAB PO DAILY, (Reported) Polyethylene Glycol 3350 17 Gm Powd.pack, 34 GM PO BID for 30 Days Prescribed by: CARLOS SAMPSON on 05/12/17 1258 Potassium Chloride 10 Meq Capsule.er, 10 MEQ PO DAILY, (Reported) Teriparatide 600 Mcg/2.4 Ml Syr, 20 MCG SQ HS, (Reported) Past Kstjusx-Xmcsgl-Ffnswr Hx Patient Social History Former Smoker, Quit: May 08, 2013 Recent Foreign Travel: No Contact w/Someone Who Travel: No Recent Hopitalizations: Yes Immunizations Up To Date Date of Pneumonia Vaccine: Feb 06, 2014 Date of Influenza Vaccine: Feb 18, 2017 Seasonal Allergies Seasonal Allergies: No Surgeries History of Surgeries: Yes (bladder sling, cervical spine 05/03/17) Respiratory History of Respiratory Disorde: No Cardiovascular History of Cardiac Disorders: No Neurological History of Neurological Disord: Yes Neurological Disorders: Dementia Reproductive System 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) Genitourinary History of Genitourinary Disor: No Gastrointestinal History of Gastrointestinal Di: Yes Gastrointestinal Disorders: Chronic Constipation Musculoskeletal History of Musculoskeletal Dis: Yes (osteoarthritis) Musculoskeletal Disorders: Osteoporosis, Arthritis Endocrine History of Endocrine Disorders: No HEENT History of HEENT Disorders: No Cancer History of Cancer: No Psychosocial History of Psychiatric Problem: No Integumentary History of Skin or Integumenta: No Blood Transfusions History of Blood Disorders: No Adverse Reaction to a Blood Tr: No Family Medical History Significant Family History: Cancer Family Medial History: FH: cancer G8 SISTER Review of Systems-General ROS-Unable to Obtain: pt cannot respond to questions, but cousin gave his thoughts Constitutional: malaise, weakness Respiratory: No cough, No dyspnea on exertion, No hemoptysis Cardiovascular: No chest pain, No edema Gastrointestinal: constipation, No melena, No nausea, No vomiting Musculoskeletal: joint pain, neck pain Physical Exam-General Problems Physical Exam Vital Signs Capillary Refill : General Appearance: moderate distress, obese Eyes: Bilateral Eye PERRL, Bilateral Eye EOMI HEENT: No scleral icterus (R), No scleral icterus (L), other (pharnix dry, no erythema) Respiratory: lungs clear, normal breath sounds, no respiratory distress, no accessory muscle use Cardiovascular: regular rate, rhythm, no murmur Gastrointestinal: normal bowel sounds, non tender, soft, no organomegaly Extremities: no pedal edema, no calf tenderness Neurologic/Psychiatric: disoriented x 3 Skin: normal color, warm/dry Lymphatic: no adenopathy (neck, axilla or groin) Data Review Labs Laboratory Tests 06/22/17 12:33: White Blood Count 10.6, Red Blood Count 4.99, Hemoglobin 13.6, Hematocrit 41, Mean Corpuscular Volume 82, Mean Corpuscular Hemoglobin 27, Mean Corpuscular Hemoglobin Concent 33, Red Cell Distribution Width 15.6H, Platelet Count 291, Mean Platelet Volume 9.3, Neutrophils (%) (Auto) 69, Lymphocytes (%) (Auto) 18, Monocytes (%) (Auto) 11, Eosinophils (%) (Auto) 2, Basophils (%) (Auto) 1, Neutrophils # (Auto) 7.3, Lymphocytes # (Auto) 1.9, Monocytes # (Auto) 1.2H, Eosinophils # (Auto) 0.2, Basophils # (Auto) 0.1, Sodium Level 145, Potassium Level 3.9, Chloride Level 111H, Carbon Dioxide Level 21, Anion Gap 13, Blood Urea Nitrogen 18, Creatinine 1.03, Estimat Glomerular Filtration Rate 52, BUN/ Creatinine Ratio 17, Glucose Level 88, Calcium Level 9.4, Total Bilirubin 1.5H, Aspartate Amino Transf (AST/SGOT) 31, Alanine Aminotransferase (ALT/SGPT) 19, Alkaline Phosphatase 51, Total Protein 7.0, Albumin 3.9 Assessment/Plan Assessment/Plan Assessment/Plan 1. Constipation 2. Confusion 3. Neck pain 4. UTI Pt is confused and moaning in pain; seems to state it is from her neck. Unfortunately it also appears as if the pain meds and/or muscle relaxers could be contributing to her confusion. In addition the labs from [place] indicate a UTI (during last admission she had E. Coli UTI treated with Rocephin); I therefore ordered another dose of Rocephin. I also started her on clear liquids; I am unsure if pt is able or even willing at this time to do colonoscopy. Hopefully if she becomes more alert can address this with her. Her abdomen is completely soft and doubt constipation is causing her pain (plus she seemed to state it was neck pain). Acute abd series was read by radiologist as showing no active process or free air; I do not see a lot of retained fecal material in distal sigmoid and rectum but also no air in distal colon. She is getting a soap suds enema, may not need more than one...depending on what comes out. I will follow along in case anything changes. Thank you for this consult. PHILLIP BENJAMIN DO Jun 22, 2017 14:07
[2017-06-22] MEDS: ENOXAPARIN 30 MG/0.3 ML (LOVENOX) SYR SC SCH (14:11)
[2017-06-22 14:17] LABS: AMORPHOUS SEDIMENT,UR MOD AMOR URATES /LPF; BACTERIA,URINE NEGATIVE /HPF; WBC,URINE RARE /HPF
[2017-06-22 16:01] VITALS: BP 133/83
[2017-06-22] MEDS ORDERED: TRAM1TAB7 PO (16:04)
[2017-06-22] MEDS: NS IV 1000 ML 1,000 ML IV SCH (16:17)
[2017-06-22] MEDS ORDERED: PATIENT MAY USE OWN MED,SINGLE MED PO SCH (16:30)
[2017-06-22 16:41] VITALS: BP 186/88
[2017-06-22] MEDS: RT-ALBUTEROL SULF 2.5 MG/3 ML PRE-MIX VIAL INH SCH (18:34)
[2017-06-22] MEDS: TERIPARATIDE 600 MCG/2.4 ML (FORTEO) SYR SQ SCH (19:56)
[2017-06-22 20:00] VITALS: BP 141/84
[2017-06-22] MEDS: fentaNYL INJECTION 100 MCG/2 ML AMP IVP PRN (22:24)
[2017-06-23] VITALS (7 sets, daily range): BP systolic 121–159; BP diastolic 69–93
[2017-06-23] MEDS: fentaNYL INJECTION 100 MCG/2 ML AMP IVP PRN ×2 (01:52→05:31)
[2017-06-23] MEDS: NS IV 1000 ML 1,000 ML IV SCH (03:48)
[2017-06-23 06:09] LABS: BASOPHILS # (AUTO) 0.1 10^3/uL (0.0-0.1); BASOPHILS % (AUTO) 1 % (0-10); EOSINOPHILS # (AUTO) 0.1 10^3/uL (0.0-0.3); EOSINOPHILS % (AUTO) 1 % (0-10); HEMATOCRIT 38 % (35-52); HEMOGLOBIN 12.8 G/DL (11.5-16.0); LYMPHOCYTES # (AUTO) 2.6 X 10^3 (1.0-4.0); LYMPHOCYTES % (AUTO) 25 % (12-44); MEAN CORPUSCULAR HEMOGLOBIN 27 PG (25-34); MEAN CORPUSCULAR HGB CONC 33 G/DL (32-36); MEAN CORPUSCULAR VOLUME 81 FL (80-99); MEAN PLATELET VOLUME 9.6 FL (7.4-10.4); MONOCYTES # (AUTO) 1.2 X 10^3 (0.0-1.0); MONOCYTES % (AUTO) 12 % (0-12); NEUTROPHILS # (AUTO) 6.6 X 10^3 (1.8-7.8); NEUTROPHILS % (AUTO) 62 % (42-75); PLATELET COUNT 283 10^3/uL (130-400); RED BLOOD COUNT 4.72 10^6/uL (4.35-5.85); RED CELL DISTRIBUTION WIDTH 15.5 % (10.0-14.5); WHITE BLOOD COUNT 10.6 10^3/uL (4.3-11.0)
[2017-06-23] MEDS ORDERED: ONDANSETRON 4 MG/2 ML (SDV) Z0FRAN IVP PRN (06:15)
[2017-06-23 06:34] LABS: ALANINE AMINOTRANSFERASE 16 U/L (0-55); ALBUMIN 3.6 GM/DL (3.2-4.5); ALKALINE PHOSPHATASE 46 U/L (40-136); BILIRUBIN,TOTAL 1.5 MG/DL (0.1-1.0); BUN/CREATININE RATIO 18; CARBON DIOXIDE 18 MMOL/L (21-32); CHLORIDE 108 MMOL/L (98-107); CREATININE SERUM 0.82 MG/DL (0.60-1.30); GFR ESTIMATED > 60; GLUCOSE 93 MG/DL (70-105); POTASSIUM 3.8 MMOL/L (3.6-5.0); SODIUM 140 MMOL/L (135-145); TOTAL PROTEIN 6.6 GM/DL (6.4-8.2)
[2017-06-23] MEDS ORDERED: ACETAMINOPHEN 325 MG TABLET/CAPLET (TYLENOL) PO PRN (07:15)
[2017-06-23] MEDS: RT-ALBUTEROL SULF 2.5 MG/3 ML PRE-MIX VIAL INH SCH ×2 (08:11→19:41)
[2017-06-23] MEDS ORDERED: cefTRIAXone INJECTION 1,000 MG in NS (IVPB) 50 ML IV SCH (09:00)
[2017-06-23] MEDS: ENOXAPARIN 30 MG/0.3 ML (LOVENOX) SYR SC SCH (10:40)
[2017-06-23] MEDS ORDERED: IBUPROFEN TABLET 200 MG TAB PO PRN (12:00)
[2017-06-23] MEDS ORDERED: ACETAMINOPHEN 500 MG TAB (TYLENOL) PO PRN (12:00)
--- NOTE | 2017-06-23 12:15 | Progress Note-Hospitalist ---
Progress Note HPI/CC on Admission CC: AMS HPI: This is a 82-year-old white female known to me from April admission first 2 [place] at [facility] following an uncomplicated lumbar spine surgery but began to have failure to thrive and altered mental status and readmitted and placed in inpatient rehabilitation after severe constipation resolved and she was doing so well she was then discharged straight home the day after admission but then presented again later that week from home health referral due to altered mental status and severe constipation and that resolved with aggressive soapsuds enemas and patient was placed in senior behavioral unit [facility] due to confusion and suspicion for dementia. She was discharged after a very short course at [place] and was sent home but then she was admitted to [facility] after altered mental status found in the ER and constipation but she did not recover and needed further workup with CT scanning and was referred to via [facility] as a direct admission on the one call system. At this current time she is confused but alert and awake complaining of abdominal pain but all labs and x-rays were normal at [facility]. I have consulted with Dr. Benjamin who will see her in consultation because she needs a colonoscopy since this is the third time she has had this similar episode. Progress Notes/Assess & Plan Date Seen 06/23/17 Time Seen by Provider: 11:00 Admission Dx/Process Altered mental status Severe constipation history causing altered mental status third episode Underlying mild dementia Dehydration Cervical spine surgery last month Diagonsis/Assessment & Plan Patient doing much better and had a shower and now up to chair and family at bedside Patient does not recall seeing me yesterday Confusion was profound and we have come to the conclusion that it was the baclofen that she took an extra dose of on Sunday when the cousin wallpaper hanger helper went to [place] to the [facility] clinic and left her alone all day To note when she discharged from [facility] I reviewed the discharge med list and she was not on any hydrocodone or baclofen and she just saw Dr. Rachel early last week and prescription for baclofen was given I will list baclofen and hydrocodone as an allergy and go back to Tylenol and ibuprofen for pain only and family is in agreement with that Bowels are moving her loose through the night Rocephin will be discontinued since UA was normal Plan will be for discharge tomorrow and patient is in agreement She did not go see her primary care provider Mabel Bermudez nurse practitioner at [facility] on 05/22/17 as scheduled by senior unit in [facility] No fever, vital signs stable, improved, up in chair, family at bedside, oriented 3 Regular rate and rhythm, clear to auscultation bilaterally No edema Laboratory Tests 06/22/17 12:33 06/23/17 05:33 Assessment: Altered mental status due to Baclofen w/h/o this side effect in 05/06 will list Baclofen and Hydrocodone as an allergy Severe constipation history contributing to the altered mental status now resolved Underlying mild dementia SLUMS [facility] in [facility] [place] 05/06 after confusion cleared Dehydration will HLIVF since now resolved Cervical spine surgery 2 months ago 05/03/17 Dr Rachel Abnl UA but repeat normal so will DC abx Plan: HLIV fluid Recheck labs in am List Baclofen and Hydrocodone as allergies and only give APAP and ibuprofen for pain DC tomorrow Ambulate today CARLOS SAMPSON DO Jun 23, 2017 12:15
--- NOTE | 2017-06-23 13:59 | Progress Note ---
Subjective Time Seen by Provider: 13:08 Subjective/Events-last exam Pt seen and examined, completely alert today and denies any abdominal pain. Pt is having BM's. Review of Systems General: No Chills, No Night Sweats Pulmonary: No Dyspnea, No Cough Cardiovascular: No: Chest Pain, Palpitations Gastrointestinal: No: Nausea, Vomiting Objective Exam Vital Signs Date Time Temp Pulse Resp B/P (MAP) Pulse Ox O2 Delivery O2 Flow Rate FiO2 06/23/17 11:34 98.6 93 18 121/69 (86) 95 Room Air 06/23/17 09:00 Room Air 06/23/17 08:11 91 Room Air 06/23/17 08:06 97.8 83 18 133/76 (95) 92 Room Air 06/23/17 04:00 98.0 83 18 145/81 (102) 93 Room Air 06/23/17 00:00 99.5 78 16 159/93 (115) 95 Room Air 06/22/17 21:00 Room Air 06/22/17 20:00 97.8 92 17 141/84 (103) 94 Room Air 06/22/17 18:37 94 Room Air 06/22/17 16:41 94 93 21 06/22/17 16:01 97.4 84 20 133/83 (100) 96 Room Air I & O 06/23/17 07:00 Intake Total 1300 ml Output Total 1490 ml Balance -190 ml Capillary Refill : Less Than 3 Seconds General Appearance: No Apparent Distress, WD/WN HEENT: PERRL/EOMI, Normal ENT Inspection, Pharynx Normal Neck: Full Range of Motion, Non Tender, Supple, Carotid Bruit Respiratory: Chest Non Tender, Lungs Clear, Normal Breath Sounds, No Accessory Muscle Use, No Respiratory Distress Cardiovascular: Regular Rate, Rhythm, No Edema, No Gallop, No JVD, No Murmur, Normal Peripheral Pulses Gastrointestinal: normal bowel sounds, non tender, soft, no organomegaly Extremity: Non Tender, No Calf Tenderness, No Pedal Edema Neurologic/Psychiatric: Alert, Oriented x3 Skin: Normal Color, Warm/Dry Lymphatic: No Adenopathy Results Lab Laboratory Tests 06/23/17 05:33: White Blood Count 10.6, Red Blood Count 4.72, Hemoglobin 12.8, Hematocrit 38, Mean Corpuscular Volume 81, Mean Corpuscular Hemoglobin 27, Mean Corpuscular Hemoglobin Concent 33, Red Cell Distribution Width 15.5H, Platelet Count 283, Mean Platelet Volume 9.6, Neutrophils (%) (Auto) 62, Lymphocytes (%) (Auto) 25, Monocytes (%) (Auto) 12, Eosinophils (%) (Auto) 1, Basophils (%) (Auto) 1, Neutrophils # (Auto) 6.6, Lymphocytes # (Auto) 2.6, Monocytes # (Auto) 1.2H, Eosinophils # (Auto) 0.1, Basophils # (Auto) 0.1, Sodium Level 140, Potassium Level 3.8, Chloride Level 108H, Carbon Dioxide Level 18L, Anion Gap 14, Blood Urea Nitrogen 15, Creatinine 0.82, Estimat Glomerular Filtration Rate > 60, BUN/ Creatinine Ratio 18, Glucose Level 93, Calcium Level 9.0, Total Bilirubin 1.5H, Aspartate Amino Transf (AST/SGOT) 24, Alanine Aminotransferase (ALT/SGPT) 16, Alkaline Phosphatase 46, Total Protein 6.6, Albumin 3.6 Assessment/Plan Assessment/Plan Assessment/Plan 1. Constipation - resolved 2. Confusion -resolved 3. Neck pain - improved 4. UTI - repeat UA did not show UTI, no need to repeat Rocephin Pt is no longer confused; my guess is this is due to the Baclofen - pt and family told not to allow her to use this in the future. I would be happy to do colonosocpy as an outpt if pt wants it. Clinical Quality Measures DVT/VTE Risk/Contraindication: Risk Factor Score Per Nursin RFS Level Per Nursing on Admit: 4+=Very High PHILLIP TEMPLETON DO Jun 23, 2017 13:59
[2017-06-23] MEDS: TERIPARATIDE 600 MCG/2.4 ML (FORTEO) SYR SQ SCH (20:49)
[2017-06-24 03:49] VITALS: BP 126/65
[2017-06-24 07:12] LABS: BASOPHILS # (AUTO) 0.1 10^3/uL (0.0-0.1); BASOPHILS % (AUTO) 1 % (0-10); EOSINOPHILS # (AUTO) 0.3 10^3/uL (0.0-0.3); EOSINOPHILS % (AUTO) 3 % (0-10); HEMATOCRIT 38 % (35-52); HEMOGLOBIN 12.6 G/DL (11.5-16.0); LYMPHOCYTES # (AUTO) 2.8 X 10^3 (1.0-4.0); LYMPHOCYTES % (AUTO) 28 % (12-44); MEAN CORPUSCULAR HEMOGLOBIN 27 PG (25-34); MEAN CORPUSCULAR HGB CONC 34 G/DL (32-36); MEAN CORPUSCULAR VOLUME 81 FL (80-99); MEAN PLATELET VOLUME 9.4 FL (7.4-10.4); MONOCYTES # (AUTO) 1.1 X 10^3 (0.0-1.0); MONOCYTES % (AUTO) 11 % (0-12); NEUTROPHILS # (AUTO) 5.7 X 10^3 (1.8-7.8); NEUTROPHILS % (AUTO) 56 % (42-75); PLATELET COUNT 290 10^3/uL (130-400); RED BLOOD COUNT 4.64 10^6/uL (4.35-5.85); RED CELL DISTRIBUTION WIDTH 15.4 % (10.0-14.5); WHITE BLOOD COUNT 10.1 10^3/uL (4.3-11.0)
[2017-06-24 07:28] LABS: ALBUMIN 3.6 GM/DL (3.2-4.5); CALCIUM 9.6 MG/DL (8.5-10.1); CREATININE SERUM 0.99 MG/DL (0.60-1.30); POTASSIUM 3.9 MMOL/L (3.6-5.0); TOTAL PROTEIN 6.5 GM/DL (6.4-8.2)
[2017-06-24] MEDS: RT-ALBUTEROL SULF 2.5 MG/3 ML PRE-MIX VIAL INH SCH (07:59)
[2017-06-24 08:41] VITALS: BP 141/71
[2017-06-24] MEDS: PHENAZOPYRIDINE 100 MG (PYRIDIUM) TABLET PO SCH ×2 (09:05→12:25)
[2017-06-24 11:18] LABS: BILIRUBIN,URINE NEGATIVE (NEGATIVE); CLARITY,URINE CLEAR; GLUCOSE, URINE (UA) NEGATIVE (NEGATIVE); KETONES,URINE NEGATIVE (NEGATIVE); LEUKOCYTE ESTERASE ,URINE NEGATIVE (NEGATIVE); NITRITE,URINE POSITIVE (NEGATIVE); PH,URINE 5 (5-9); PROTEIN,URINE NEGATIVE (NEGATIVE); UROBILINOGEN,URINE NORMAL (NORMAL)
[2017-06-24] MEDS: ENOXAPARIN 30 MG/0.3 ML (LOVENOX) SYR SC SCH (11:23)
[2017-06-24 11:28] LABS: BACTERIA,URINE NEGATIVE /HPF; COLOR,URINE ORANGE; SQUAMOUS EPITHELIAL CELL,UR RARE /HPF; WBC,URINE RARE /HPF
--- NOTE | 2017-06-24 12:27 | Discharge Summary-Hospitalist ---
Diagnosis/Chief Complaint Date of Admission Jun 22, 2017 at 12:25 Date of Discharge Discharge Date: Jun 24, 2017 Admission Diagnosis Altered mental status Severe constipation history causing altered mental status third episode Underlying mild dementia Dehydration Cervical spine surgery last month Discharge Diagnosis Patient doing much better and had a shower and now up to chair and family at bedside Patient does not recall seeing me yesterday Confusion was profound and we have come to the conclusion that it was the baclofen that she took an extra dose of on Sunday when the cousin an/syq 13 nav/c2 operator went to [place] to the ID clinic and left her alone all day To note when she discharged from [facility] I reviewed the discharge med list and she was not on any hydrocodone or baclofen and she just saw Dr. Rachel early last week and prescription for baclofen was given I will list baclofen and hydrocodone as an allergy and go back to Tylenol and ibuprofen for pain only and family is in agreement with that Bowels are moving her loose through the night Rocephin will be discontinued since UA was normal Plan will be for discharge tomorrow and patient is in agreement She did not go see her primary care provider Mabel Bermudez nurse practitioner at [facility] on 05/22/17 as scheduled by senior unit in [facility] No fever, vital signs stable, improved, up in chair, family at bedside, oriented 3 Regular rate and rhythm, clear to auscultation bilaterally No edema Laboratory Tests 06/22/17 12:33 06/23/17 05:33 Assessment: Altered mental status due to Baclofen w/h/o this side effect in 05/06 will list Baclofen and Hydrocodone as an allergy Severe constipation history contributing to the altered mental status now resolved Underlying mild dementia SLUMS 26 in [facility] 05/06 after confusion cleared Dehydration will HLIVF since now resolved Cervical spine surgery 2 months ago 05/03/17 Dr Rachel Abnl UA but repeat normal so will DC abx Plan: HLIV fluid Recheck labs in am List Baclofen and Hydrocodone as allergies and only give APAP and ibuprofen for pain DC tomorrow Ambulate today Discharge Summary Discharge Physical Examination Allergies: Coded Allergies: baclofen (Verified Allergy, Unknown, 06/23/17) confusion codeine (Verified Allergy, Unknown, 06/22/17) hydrocodone (Verified Allergy, Unknown, 06/23/17) confusion Vitals & I&Os Vital Signs Date Time Temp Pulse Resp B/P (MAP) Pulse Ox O2 Delivery O2 Flow Rate FiO2 06/24/17 08:41 98.6 102 20 141/71 (94) 98 Room Air 06/22/17 16:41 21 Hospital Course Hospital course: Patient had a brief hospital course due to confusion that eventually cleared with initiation of bowel movements and resolution of constipation and resolution of dehydration with IV fluids and holding baclofen and all other pain medication. This is the third time that this is occurred and we have confirmed these delirium episodes are from baclofen and hydrocodone so those both were placed on allergy list. She will take only ibuprofen and Tylenol for pain. She will see Mabel Bermudez her primary care provider in [facility] this week. Labs (last 24 hrs) Laboratory Tests 06/24/17 07:03: White Blood Count 10.1, Red Blood Count 4.64, Hemoglobin 12.6, Hematocrit 38, Mean Corpuscular Volume 81, Mean Corpuscular Hemoglobin 27, Mean Corpuscular Hemoglobin Concent 34, Red Cell Distribution Width 15.4H, Platelet Count 290, Mean Platelet Volume 9.4, Neutrophils (%) (Auto) 56, Lymphocytes (%) (Auto) 28, Monocytes (%) (Auto) 11, Eosinophils (%) (Auto) 3, Basophils (%) (Auto) 1, Neutrophils # (Auto) 5.7, Lymphocytes # (Auto) 2.8, Monocytes # (Auto) 1.1H, Eosinophils # (Auto) 0.3, Basophils # (Auto) 0.1, Sodium Level 137, Potassium Level 3.9, Chloride Level 107, Carbon Dioxide Level 21, Anion Gap 9, Blood Urea Nitrogen 22H, Creatinine 0.99, Estimat Glomerular Filtration Rate 54, BUN/ Creatinine Ratio 22, Glucose Level 112H, Calcium Level 9.6, Total Bilirubin 1.0 , Aspartate Amino Transf (AST/SGOT) 19, Alanine Aminotransferase (ALT/SGPT) 15, Alkaline Phosphatase 42, Total Protein 6.5, Albumin 3.6 06/24/17 11:10: Urine Color ORANGE, Urine Clarity CLEAR, Urine pH 5, Urine Specific [place] 1.010L, Urine Protein NEGATIVE, Urine Glucose (UA) NEGATIVE, Urine Ketones NEGATIVE, Urine Nitrite POSITIVEH, Urine Bilirubin NEGATIVE, Urine Urobilinogen NORMAL, Urine Leukocyte Esterase NEGATIVE, Urine RBC (Auto) NEGATIVE, Urine RBC NONE, Urine WBC RARE, Urine Squamous Epithelial Cells RARE, Urine Crystals NONE , Urine Bacteria NEGATIVE, Urine Casts NONE, Urine Mucus NEGATIVE, Urine Culture Indicated NO Pending Labs Laboratory Tests 06/24/17 07:03: White Blood Count 10.1, Red Blood Count 4.64, Hemoglobin 12.6, Hematocrit 38, Mean Corpuscular Volume 81, Mean Corpuscular Hemoglobin 27, Mean Corpuscular Hemoglobin Concent 34, Red Cell Distribution Width 15.4, Platelet Count 290, Mean Platelet Volume 9.4, Neutrophils (%) (Auto) 56, Lymphocytes (%) (Auto) 28, Monocytes (%) (Auto) 11, Eosinophils (%) (Auto) 3, Basophils (%) (Auto) 1, Neutrophils # (Auto) 5.7, Lymphocytes # (Auto) 2.8, Monocytes # (Auto) 1.1, Eosinophils # (Auto) 0.3, Basophils # (Auto) 0.1, Sodium Level 137, Potassium Level 3.9, Chloride Level 107, Carbon Dioxide Level 21, Anion Gap 9, Blood Urea Nitrogen 22, Creatinine 0.99, Estimat Glomerular Filtration Rate 54, BUN/ Creatinine Ratio 22, Glucose Level 112, Calcium Level 9.6, Total Bilirubin 1.0, Aspartate Amino Transf (AST/SGOT) 19, Alanine Aminotransferase (ALT/SGPT) 15, Alkaline Phosphatase 42, Total Protein 6.5, Albumin 3.6 06/24/17 11:10: Urine Color ORANGE, Urine Clarity CLEAR, Urine pH 5, Urine Specific [place] 1.010, Urine Protein NEGATIVE, Urine Glucose (UA) NEGATIVE, Urine Ketones NEGATIVE, Urine Nitrite POSITIVE, Urine Bilirubin NEGATIVE, Urine Urobilinogen NORMAL, Urine Leukocyte Esterase NEGATIVE, Urine RBC (Auto) NEGATIVE, Urine RBC NONE, Urine WBC RARE, Urine Squamous Epithelial Cells RARE, Urine Crystals NONE , Urine Bacteria NEGATIVE, Urine Casts NONE, Urine Mucus NEGATIVE, Urine Culture Indicated NO Discharge Home Medications: Active Scripts Active Polyethylene Glycol 3350 17 Gm Powd.pack 34 Gm PO BID 30 Days Acetaminophen 500 Mg Tablet 500 Mg PO Q4H PRN 30 Days Ibuprofen 200 Mg Tablet 400 Mg PO Q6H PRN 30 Days Reported Tramadol-Acetaminophn 37.5-325 (Tramadol HCl/Acetaminophen) 1 Each Tablet 1-2 Tab PO Q8H PRN Vitamin D3 (Cholecalciferol (Vitamin D3)) 50,000 Unit Capsule 50,000 Unit PO FR Potassium Chloride 10 Meq Capsule.er 10 Meq PO DAILY Daily Multiple Vitamin (Multivitamin) 1 Each Tablet 1 Tab PO DAILY Forteo (Teriparatide) 600 Mcg/2.4 Ml Syr 20 Mcg SQ HS Calcium Magnesium Caplet (Ca Carb & Gluc/Mag Ox & Gluc) 1 Each Tablet 1 Tab PO DAILY Instructions to patient/family Please see electronic discharge instructions given to patient. Clinical Quality Measures DVT/VTE Risk/Contraindication: Risk Factor Score Per Nursin RFS Level Per Nursing on Admit: 4+=Very High CARLOS SAMPSON DO Jun 24, 2017 12:27
== END 2017-06-24 12:26 | disposition home or self-care (01) ==
LOC: 4TH 12:20 → UNDOADMOB 12:25 → 4TH 12:25 → UNDODISOB 06-24 13:02
PROVIDERS: ADMIT Internal Medicine; ATTEND Internal Medicine
DX: R41.82 Altered mental status, unspecified (principal); T42.8X5A Adverse effect of antiparkinsonism drugs and other central muscle-tone depressants, initial encounter; K59.00 Constipation, unspecified; F03.90 Unspecified dementia, unspecified severity, without behavioral disturbance, psychotic disturbance, mood disturbance, and anxiety; E86.0 Dehydration; R82.99 Other abnormal findings in urine; M81.0 Age-related osteoporosis without current pathological fracture; M19.91 Primary osteoarthritis, unspecified site; Z98.890 Other specified postprocedural states; Z79.899 Other long term (current) drug therapy
CPT/HCPCS: 36415; 70450; 74022; 80053; 81000; 85025; 94640; 94760; 99211; G0378

== ENCOUNTER 2017-10-07 21:08 | Inpatient (IN) | payer MEDICARE, OTHER ==
[~2017-10-07] VITALS: Ht 157.5 cm; Wt 75.5 kg
[~2017-10-07 21:08] MED LIST changes: +CHOL500049 PO; +TRAM1TAB7 PO
[2017-10-07] MEDS ORDERED: RT-ALBUTEROL/IPRATROPIUM 3 ML (DUONEB) VIAL INH ONE (21:15)
[2017-10-07] MEDS ORDERED: methylPREDNISolone 125 MG (Solu-MEDROL) VIAL IVP ONE (21:15)
[2017-10-07 21:27] LABS: BASOPHILS # (AUTO) 0.1 10^3/uL (0.0-0.1); BASOPHILS % (AUTO) 1 % (0-10); EOSINOPHILS # (AUTO) 0.4 10^3/uL (0.0-0.3); EOSINOPHILS % (AUTO) 4 % (0-10); HEMATOCRIT 42 % (35-52); HEMOGLOBIN 13.8 G/DL (11.5-16.0); LYMPHOCYTES # (AUTO) 3.9 X 10^3 (1.0-4.0); LYMPHOCYTES % (AUTO) 42 % (12-44); MEAN CORPUSCULAR HEMOGLOBIN 26 PG (25-34); MEAN CORPUSCULAR HGB CONC 33 G/DL (32-36); MEAN CORPUSCULAR VOLUME 81 FL (80-99); MEAN PLATELET VOLUME 9.3 FL (7.4-10.4); MONOCYTES # (AUTO) 0.9 X 10^3 (0.0-1.0); MONOCYTES % (AUTO) 10 % (0-12); NEUTROPHILS % (AUTO) 44 % (42-75); PLATELET COUNT 325 10^3/uL (130-400); RED BLOOD COUNT 5.22 10^6/uL (4.35-5.85); RED CELL DISTRIBUTION WIDTH 15.8 % (10.0-14.5); WHITE BLOOD COUNT 9.3 10^3/uL (4.3-11.0)
[2017-10-07 21:39] LABS: PROTHROMBIN TIME PATIENT 13.2 SEC (12.2-14.7)
[2017-10-07 21:40] LABS: ABG BASE EXCESS -1.2 MMOL/L (-2.5-2.5); ABG OXYGEN SATURATION 98 % (94-100); ABG PCO2 38 MMHG (35-45); ABG PO2 90 MMHG (79-93); ABG TCO2 24.3 MMOL/L (21.0-31.0)
[2017-10-07 21:47] LABS: ALANINE AMINOTRANSFERASE 17 U/L (0-55); ALBUMIN 4.7 GM/DL (3.2-4.5); ALKALINE PHOSPHATASE 54 U/L (40-136); BILIRUBIN,TOTAL 1.1 MG/DL (0.1-1.0); BUN/CREATININE RATIO 15; CALCIUM 10.5 MG/DL (8.5-10.1); CARBON DIOXIDE 21 MMOL/L (21-32); CHLORIDE 107 MMOL/L (98-107); CREATINE KINASE 73 U/L (29-168); CREATININE SERUM 1.37 MG/DL (0.60-1.30); GFR ESTIMATED 37; GLUCOSE 130 MG/DL (70-105); MAGNESIUM 2.1 MG/DL (1.8-2.4); POTASSIUM 3.7 MMOL/L (3.6-5.0); SODIUM 143 MMOL/L (135-145); TOTAL PROTEIN 7.9 GM/DL (6.4-8.2)
--- NOTE | 2017-10-07 21:47 | Diagnostic Imaging Report ---
INDICATION: Shortness of breath. COMPARISON: 06/22/2017. EXAMINATION: Single view of the chest was obtained. FINDINGS: Cardiac enlargement with bilateral interstitial infiltrates compatible with pulmonary edema. No pneumothorax or large effusion is seen. Osseous structures are stable. IMPRESSION: Cardiac enlargement with interstitial infiltrates, likely CHF. Dictated by: Dictated on workstation # [id number]
[2017-10-07 21:48] LABS: ALLENS TEST YES-POS; INSPIRED O2 65%; VENTILATOR NO
[2017-10-07 21:49] LABS: PATIENT TEMP 96.7
[2017-10-07 21:54] LABS: CREATINE KINASE MB 1.7 NG/ML (<6.6)
[2017-10-07] MEDS ORDERED: NITROGLYCERIN 2% OINT 1 GM UNIT DOSE PACKET TOP ONE (22:00)
[2017-10-07] MEDS ORDERED: ENOXAPARIN 80 MG/0.8 ML (LOVENOX) SYR SC ONE (22:00)
[2017-10-07] MEDS ORDERED: FUROSEMIDE 40 MG/4 ML INJ (LASIX) IVP ONE (22:00)
[2017-10-07 22:43] LABS: BILIRUBIN,URINE NEGATIVE (NEGATIVE); CLARITY,URINE CLEAR; COLOR,URINE OTHER; GLUCOSE, URINE (UA) NEGATIVE (NEGATIVE); KETONES,URINE NEGATIVE (NEGATIVE); LEUKOCYTE ESTERASE ,URINE NEGATIVE (NEGATIVE); NITRITE,URINE NEGATIVE (NEGATIVE); PH,URINE 8 (5-9); PROTEIN,URINE NEGATIVE (NEGATIVE); UROBILINOGEN,URINE NORMAL (NORMAL)
--- NOTE | 2017-10-07 23:54 | ED Respiratory ---
General Chief Complaint: Respiratory Problems Stated Complaint: NEW ONSET ATRIAL FIB;CHF;HYPOXIA Source: patient Exam Limitations: no limitations History of Present Illness Date Seen by Provider: October 07, 2017 Time Seen by Provider: 21:08 Initial Comments PT ARRIVES VIA POV FROM HOME C/O SUDDEN ONSET OF SHORTNESS OF BREATH--30 MINUTES AGO, WHILE LAYING DOWN STATES HER HEART FELT LIKE IT WAS BEATING FAST, BUT NOT NOW NO CHEST PAIN NO SWEATS NO NAUSEA/VOMITING NO SWELLING IN LEGS/ FEET OR PAIN IN CALVES NO COUGH, FEVER OR RECENT ILLNESS HAS FELT FINE ALL DAY AND DID NORMAL ACTIVITIES TODAY WITHOUT PROBLEMS NO HISTORY OF RESPIRATORY PROBLEMS OR CARDIAC PROBLEMS STATES SHE HAD ONE EPISODE LIKE THIS A LONG TIME AGO, AND WENT TO BUT STATES SHE WAS NOT GIVEN A DIAGNOSIS PCP: GAYLA MUHAMMAD WITH [facility] IN [place] Allergies and Home Medications Allergies Coded Allergies: baclofen (Verified Allergy, Unknown, 06/23/17) confusion codeine (Verified Allergy, Unknown, 06/22/17) hydrocodone (Verified Allergy, Unknown, 06/23/17) confusion Home Medications Acetaminophen 500 Mg Tablet, 500 MG PO Q4H PRN for PAIN-MILD Prescribed by: CARLOS SAMPSON on 05/12/17 1258 Ca Carb & Gluc/Mag Ox & Gluc 1 Each Tablet, 1 TAB PO DAILY, (Reported) Cholecalciferol (Vitamin D3) 50,000 Unit Capsule, 50,000 UNIT PO Fr, (Reported) Ibuprofen 200 Mg Tablet, 400 MG PO Q6H PRN for PAIN-MILD Prescribed by: CARLOS SAMPSON on 05/12/17 1258 Multivitamin 1 Each Tablet, 1 TAB PO DAILY, (Reported) Polyethylene Glycol 3350 17 Gm Powd.pack, 34 GM PO BID Prescribed by: CARLOS SAMPSON on 05/12/17 1258 Potassium Chloride 10 Meq Capsule.er, 10 MEQ PO DAILY, (Reported) Teriparatide 600 Mcg/2.4 Ml Syr, 20 MCG SQ HS, (Reported) Patient Home Medication List Home Medication List Reviewed: Yes Review of Systems Constitutional: no symptoms reported EENTM: no symptoms reported Respiratory: see HPI, short of breath; No wheezing Cardiovascular: see HPI; No chest pain, No edema; palpitations; No syncope, No vascular heart diseas Gastrointestinal: no symptoms reported Genitourinary: no symptoms reported Musculoskeletal: no symptoms reported Skin: no symptoms reported Psychiatric/Neurological: No Symptoms Reported Hematologic/Lymphatic: No Symptoms Reported Immunological/Allergic: no symptoms reported Past Hslubdw-Hgosjt-Azwiuu Hx Patient Social History Alcohol Use: Rarely Uses Alcohol Beverage of Choice: Beer Recreational Drug Use: No Smoking Status: Former Smoker (1/2 PPD) Type Used: Cigarettes Former Smoker, Quit: May 08, 2013 Recent Foreign Travel: No Contact w/Someone Who Travel: No Recent Hopitalizations: Yes Immunizations Up To Date Date of Pneumonia Vaccine: Jan 27, 2014 Date of Influenza Vaccine: Feb 18, 2017 Seasonal Allergies Seasonal Allergies: No Past Medical History Surgeries: Yes (bladder sling, cervical spine 05/03/17; HYST/BSO) Bladder Surgery, Gallbladder, Hysterectomy, Oophorectomy, Orthopedic Respiratory: Yes COPD Cardiac: No Neurological: Yes Dementia Reproductive Disorders: Yes (U-V PROLAPSE) Female 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 MORALES) Osteoporosis, Arthritis Endocrine: No HEENT: No Hearing Impairment: Denies Cancer: No Psychosocial: Yes ([facility] END OF APRIL) Integumentary: No Blood Disorders: No Adverse Reaction/Blood Tranf: No Family Medical History FH: cancer G8 SISTER Cancer Physical Exam Vital Signs Vital Signs - First Documented 10/07/17 10/07/17 21:15 21:20 Temp 98.6 Pulse 93 Resp 28 B/P (MAP) 177/158 (164) Pulse Ox 94 O2 Delivery Nasal Cannula O2 Flow Rate 3.00 FiO2 100 Capillary Refill : General Appearance: moderate distress (DYSPNEIC, TALKS IN 1-2 WORD PHRASES ) HEENT: PERRL/EOMI Respiratory: respiratory distress, decreased breath sounds, accessory muscle use, wheezing (DIFFUSE MOIST WHEEZING BILATERALLY) Cardiovascular: regular rate, rhythm, no edema, no JVD, no murmur Gastrointestinal: normal bowel sounds, non tender, soft Extremities: normal inspection, no pedal edema, no calf tenderness, normal capillary refill Neurologic/Psychiatric: 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 II-XII nml as tested, no motor/sensory deficits, alert, normal mood/affect, oriented x 3 Skin: normal color, warm/dry Progress/Results/Core Measures Suspected Sepsis SIRS Temperature: Pulse: Respiratory Rate: Laboratory Tests 10/07/17 21:17: White Blood Count 9.3 Blood Pressure / Mean: Laboratory Tests 10/07/17 21:17: Creatinine 1.37H, INR Comment 1.0, Platelet Count 325, Total Bilirubin 1.1H Results/Orders Lab Results Laboratory Tests Test 10/07/17 21:17 10/07/17 21:32 Range/Units White Blood Count 9.3 4.3-11.0 10^3/uL Red Blood Count 5.22 4.35-5.85 10^6/uL Hemoglobin 13.8 11.5-16.0 G/DL Hematocrit 42 35-52 % Mean Corpuscular Volume 81 80-99 FL Mean Corpuscular Hemoglobin 26 25-34 PG Mean Corpuscular Hemoglobin Concent 33 32-36 G/DL Red Cell Distribution Width 15.8 H 10.0-14.5 % Platelet Count 325 130-400 10^3/uL Mean Platelet Volume 9.3 7.4-10.4 FL Neutrophils (%) (Auto) 44 42-75 % Lymphocytes (%) (Auto) 42 12-44 % Monocytes (%) (Auto) 10 0-12 % Eosinophils (%) (Auto) 4 0-10 % Basophils (%) (Auto) 1 0-10 % Neutrophils # (Auto) 4.0 1.8-7.8 X 10^3 Lymphocytes # (Auto) 3.9 1.0-4.0 X 10^3 Monocytes # (Auto) 0.9 0.0-1.0 X 10^3 Eosinophils # (Auto) 0.4 H 0.0-0.3 10^3/uL Basophils # (Auto) 0.1 0.0-0.1 10^3/uL Prothrombin Time 13.2 12.2-14.7 SEC INR Comment 1.0 0.8-1.4 Activated Partial Thromboplast Time 32 24-35 SEC Sodium Level 143 135-145 MMOL/L Potassium Level 3.7 3.6-5.0 MMOL/L Chloride Level 107 98-107 MMOL/L Carbon Dioxide Level 21 21-32 MMOL/L Anion Gap 15 H 5-14 MMOL/L Blood Urea Nitrogen 21 H 7-18 MG/DL Creatinine 1.37 H 0.60-1.30 MG/DL Estimat Glomerular Filtration Rate 37 BUN/Creatinine Ratio 15 Glucose Level 130 H 70-105 MG/DL Calcium Level 10.5 H 8.5-10.1 MG/DL Magnesium Level 2.1 1.8-2.4 MG/DL Total Bilirubin 1.1 H 0.1-1.0 MG/DL Aspartate Amino Transf (AST/SGOT) 21 5-34 U/L Alanine Aminotransferase (ALT/SGPT) 17 0-55 U/L Alkaline Phosphatase 54 40-136 U/L Total Creatine Kinase 73 29-168 U/L Creatine Kinase MB 1.7 <6.6 NG/ML Troponin I < 0.30 <0.30 NG/ML B-Type Natriuretic Peptide 144.4 H <100.0 PG/ML Total Protein 7.9 6.4-8.2 GM/DL Albumin 4.7 H 3.2-4.5 GM/DL TSH [place] Testing 4.08 0.35-4.94 UIU/ML Blood Gas Puncture Site LEFT RADIAL Blood Gas Patient Temperature 96.7 Arterial Blood pH 7.40 7.37-7.43 Arterial Blood Partial Pressure CO2 38 35-45 MMHG Arterial Blood Partial Pressure O2 90 79-93 MMHG Arterial Blood HCO3 23 23-27 MMOL/L Arterial Blood Total CO2 24.3 21.0-31.0 MMOL/L Arterial Blood Oxygen Saturation 98 94-100 % Arterial Blood Base Excess -1.2 -2.5-2.5 MMOL/L [place]iel Test YES-POS Blood Gas Ventilator Setting NO Blood Gas Inspired Oxygen 65% My Orders Orders - SHADE FINN DO Saline Lock/Iv-Start (10/07/17 21:14) Ekg Tracing (10/07/17 21:14) O2 (10/07/17 21:14) Monitor-Rhythm Ecg Trace Only (10/07/17 21:14) BNP (10/07/17 21:14) Cbc With Automated Diff (10/07/17 21:14) Comprehensive Metabolic Panel (10/07/17 21:14) Creatine Kinase (10/07/17 21:14) Creatine Kinase Mb (10/07/17 21:14) Magnesium (10/07/17 21:14) Protime With Inr (10/07/17 21:14) Partial Thromboplastin Time (10/07/17 21:14) Troponin I (10/07/17 21:14) Chest 1 View, Ap/Pa Only (10/07/17 21:14) Albuterol/Ipra Inhalation Soln (Duoneb I (10/07/17 21:15) Rt Request For Service (10/07/17 21:14) Svn Small Volume Nebulizer (10/07/17 21:14) Methylprednisolone Sod Succ (Solu-Medrol (10/07/17 21:15) Arterial Blood Gas (10/07/17 21:35) Furosemide Injection (Lasix Injection) (10/07/17 22:00) Catheter(Urinary) Insert & Ass 03,15 (10/07/17 21:47) Enoxaparin Injection (Lovenox Injection) (10/07/17 22:00) Nitroglycerin Ointment (Nitrobid Ointme (10/07/17 22:00) Thyroid Analyzer (10/07/17 22:10) Ua Culture If Indicated (10/07/17 22:10) Medications Given in ED Current Medications Medications Dose Ordered Sig/Blanca Route Start Time Stop Time Status Last Admin Dose Admin Albuterol/ Ipratropium 3 ml ONCE ONCE INH 10/07/17 21:15 10/07/17 21:16 DC 10/07/17 21:20 3 ML Enoxaparin Sodium 80 mg ONCE ONCE SC 10/07/17 22:00 10/07/17 22:01 DC 10/07/17 22:05 80 MG Furosemide 80 mg ONCE ONCE IVP 10/07/17 22:00 10/07/17 22:01 DC 10/07/17 22:00 80 MG Methylprednisolone Sodium Succinate 125 mg ONCE ONCE IVP 10/07/17 21:15 10/07/17 21:16 DC 10/07/17 21:26 125 MG Nitroglycerin 1 inch ONCE ONCE TOP 10/07/17 22:00 10/07/17 22:01 DC 10/07/17 22:05 1 INCH Vital Signs/I&O 10/07/17 10/07/17 10/07/17 21:15 21:20 21:20 Temp 98.6 Pulse 93 Resp 28 B/P (MAP) 177/158 (164) Pulse Ox 94 93 94 O2 Delivery Nasal Cannula Nasal Cannula Nasal Cannula O2 Flow Rate 3.00 3.00 3.00 FiO2 100 Capillary Refill : Progress Note : Progress Note INITIAL O2 SATS 88% ON ROOM AIR PT GIVEN NEB TREATMENT,PLACED ON O2 AND THEN VAPOTHERM--O2 SATS UP TO 99%--PT NOW RESTING QUIETLY AND NO LONGER DYSPNEIC AND ABLE TO SPEAK IN FULL SENTENCES PT GIVEN SOLU-MEDROL, LASIX, NITROPASTE, AND LOVENOX PT REMAINED IN ATRIAL FIB BUT RATE < 100 FOR ER STAY. NO DETERIORATION IN PT'S CONDITION DURING ER STAY 0048--C/O SEVERE LEG CRAMPS, CHEMISTRY PANEL DRAWN. NO HYPOKALEMIA OR HYPOCALCEMIA ECG Initial ECG Impression Date: October 07, 2017 Initial ECG Impression Time: 21:14 Initial ECG Rate: 102 Initial ECG Rhythm: A Fib/Flutter (ST DEPRESSION ANTERIOR LATERAL LEADS) EKG : EKG Time: 22:55 Rate: 88 Rhythm: A Fib/Flutter (NO ST DEPRESSION ) Diagnostic Imaging Comments CXR--CARDIOMEGALY, INTERSTITIAL INFILTRATES / CHF--PER RADIOLOGIST REPORT @ 2153 Reviewed: Reviewed by Me Departure Communication (Admissions) 2210--SPOKE WITH DR. REY, ACCEPTS PT FOR ADMIT. 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 Referrals: NO,LOCAL PHYSICIAN (PCP/Family) Primary Care Physician SHADE FINN DO October 07, 2017 23:53
[2017-10-08] VITALS (20 sets, daily range): BP systolic 93–139; BP diastolic 60–98
[2017-10-08 01:24] LABS: ALBUMIN 4.8 GM/DL (3.2-4.5); BILIRUBIN,TOTAL 1.3 MG/DL (0.1-1.0); CALCIUM 11.1 MG/DL (8.5-10.1); CREATININE SERUM 1.43 MG/DL (0.60-1.30); POTASSIUM 3.8 MMOL/L (3.6-5.0); TOTAL PROTEIN 8.3 GM/DL (6.4-8.2)
[2017-10-08 03:37] LABS: BASOPHILS % (AUTO) 0 % (0-10); EOSINOPHILS % (AUTO) 0 % (0-10); HEMATOCRIT 43 % (35-52); HEMOGLOBIN 14.4 G/DL (11.5-16.0); LYMPHOCYTES # (AUTO) 0.9 X 10^3 (1.0-4.0); LYMPHOCYTES % (AUTO) 9 % (12-44); MEAN CORPUSCULAR HEMOGLOBIN 27 PG (25-34); MEAN CORPUSCULAR HGB CONC 33 G/DL (32-36); MEAN CORPUSCULAR VOLUME 81 FL (80-99); MEAN PLATELET VOLUME 9.9 FL (7.4-10.4); MONOCYTES # (AUTO) 0.2 X 10^3 (0.0-1.0); MONOCYTES % (AUTO) 2 % (0-12); NEUTROPHILS # (AUTO) 9.2 X 10^3 (1.8-7.8); NEUTROPHILS % (AUTO) 90 % (42-75); PLATELET COUNT 299 10^3/uL (130-400); RED BLOOD COUNT 5.37 10^6/uL (4.35-5.85); RED CELL DISTRIBUTION WIDTH 15.3 % (10.0-14.5); WHITE BLOOD COUNT 10.2 10^3/uL (4.3-11.0)
[2017-10-08 04:00] LABS: ALANINE AMINOTRANSFERASE 16 U/L (0-55); ALBUMIN 4.8 GM/DL (3.2-4.5); ALKALINE PHOSPHATASE 54 U/L (40-136); BILIRUBIN,TOTAL 1.3 MG/DL (0.1-1.0); BUN/CREATININE RATIO 15; CALCIUM 11.1 MG/DL (8.5-10.1); CARBON DIOXIDE 24 MMOL/L (21-32); CHLORIDE 103 MMOL/L (98-107); CREATININE SERUM 1.47 MG/DL (0.60-1.30); GFR ESTIMATED 34; GLUCOSE 204 MG/DL (70-105); POTASSIUM 4.1 MMOL/L (3.6-5.0); SODIUM 144 MMOL/L (135-145); TOTAL PROTEIN 8.2 GM/DL (6.4-8.2)
[2017-10-08] MEDS ORDERED: NITROGLYCERIN 2% OINT 1 GM UNIT DOSE PACKET TOP SCH (04:00)
[2017-10-08] MEDS ORDERED: FUROSEMIDE 40 MG/4 ML INJ (LASIX) IV SCH (04:00)
[2017-10-08 04:06] LABS: CARDIAC PROFILE 2 < 0.30 NG/ML (<0.30)
[2017-10-08] MEDS ORDERED: LIDOCAINE 2% VISCOUS 15 ML UDC ONE (07:53)
[2017-10-08] MEDS ORDERED: NS IV 1000 ML 1,000 ML ONE (08:00)
--- NOTE | 2017-10-08 08:00 | Consultation-Cardiology ---
HPI-Cardiology Cardiology Consultation Date of Consultation 10/08/17 Date of Admission Time Seen by Provider: 07:55 Indication: Atrial flutter HPI 82 years old lady with history of mild hypertension. Was in her usual state of health until last night when she had a sudden onset of shortness of breath at rest, came to the emergency room and noted to be in atrial flutter. Her rate is controlled. This morning she is feeling slightly better. Remembered having a similar episode in the remote past. Denied any chest pain. No palpitation. No syncope or near syncopal episodes. No fever or chills. No claudications. Home Medications & Allergies Allergies: Coded Allergies: baclofen (Verified Allergy, Unknown, 06/23/17) confusion codeine (Verified Allergy, Unknown, 06/22/17) hydrocodone (Verified Allergy, Unknown, 06/23/17) confusion Home Medication List Reviewed: Yes [id number] Hx Patient Social History Marital Status: Employed/Student: retired Alcohol Use: Rarely Uses Recreational Drug Use: No Smoking Status: Former Smoker (1/2 PPD) Type Used: Cigarettes Recent Foreign Travel: No Recent Infectious Disease Expo: No Recent Hopitalizations: Yes Physical Abuse Screen: No Sexual Abuse: No Immunizations Up To Date Date of Pneumonia Vaccine: Feb 18, 2017 Date of Influenza Vaccine: Feb 18, 2017 Past Medical History Discussed below Family Medical History Significant Family History: Cancer Family Medical Hx Noncontributory to her current condition Family History: FH: cancer G8 SISTER Constitutional: no symptoms reported, see HPI EENTM: see HPI Respiratory: see HPI; No cough, No dyspnea on exertion, No hemoptysis; orthopnea; No phlegm; short of breath; No stridor, No wheezing, No other Cardiovascular: see HPI; No chest pain, No edema, No Hx of Intervention, No palpitations, No syncope, No vascular heart diseas, No other Gastrointestinal: no symptoms reported, see HPI Genitourinary: no symptoms reported, see HPI Musculoskeletal: see HPI, joint pain Skin: no symptoms reported, see HPI Psychiatric/Neurological: No Symptoms Reported, See HPI Reviewed Test Results Reviewed Test Results Lab Laboratory Tests Test 10/07/17 21:17 10/07/17 21:32 10/07/17 22:30 10/08/17 00:57 Range/Units White Blood Count 9.3 4.3-11.0 10^3/uL Red Blood Count 5.22 4.35-5.85 10^6/uL Hemoglobin 13.8 11.5-16.0 G/DL Hematocrit 42 35-52 % Mean Corpuscular Volume 81 80-99 FL Mean Corpuscular Hemoglobin 26 25-34 PG Mean Corpuscular Hemoglobin Concent 33 32-36 G/DL Red Cell Distribution Width 15.8 H 10.0-14.5 % Platelet Count 325 130-400 10^3/uL Mean Platelet Volume 9.3 7.4-10.4 FL Neutrophils (%) (Auto) 44 42-75 % Lymphocytes (%) (Auto) 42 12-44 % Monocytes (%) (Auto) 10 0-12 % Eosinophils (%) (Auto) 4 0-10 % Basophils (%) (Auto) 1 0-10 % Neutrophils # (Auto) 4.0 1.8-7.8 X 10^3 Lymphocytes # (Auto) 3.9 1.0-4.0 X 10^3 Monocytes # (Auto) 0.9 0.0-1.0 X 10^3 Eosinophils # (Auto) 0.4 H 0.0-0.3 10^3/uL Basophils # (Auto) 0.1 0.0-0.1 10^3/uL Prothrombin Time 13.2 12.2-14.7 SEC INR Comment 1.0 0.8-1.4 Activated Partial Thromboplast Time 32 24-35 SEC Sodium Level 143 143 135-145 MMOL/L Potassium Level 3.7 3.8 3.6-5.0 MMOL/L Chloride Level 107 103 98-107 MMOL/L Carbon Dioxide Level 21 23 21-32 MMOL/L Anion Gap 15 H 17 H 5-14 MMOL/L Blood Urea Nitrogen 21 H 21 H 7-18 MG/DL Creatinine 1.37 H 1.43 H 0.60-1.30 MG/DL Estimat Glomerular Filtration Rate 37 35 BUN/Creatinine Ratio 15 15 Glucose Level 130 H 176 H 70-105 MG/DL Calcium Level 10.5 H 11.1 H 8.5-10.1 MG/DL Magnesium Level 2.1 1.8-2.4 MG/DL Total Bilirubin 1.1 H 1.3 H 0.1-1.0 MG/DL Aspartate Amino Transf (AST/SGOT) 21 23 5-34 U/L Alanine Aminotransferase (ALT/SGPT) 17 15 0-55 U/L Alkaline Phosphatase 54 53 40-136 U/L Total Creatine Kinase 73 29-168 U/L Creatine Kinase MB 1.7 <6.6 NG/ML Troponin I < 0.30 <0.30 NG/ML B-Type Natriuretic Peptide 144.4 H <100.0 PG/ML Total Protein 7.9 8.3 H 6.4-8.2 GM/DL Albumin 4.7 H 4.8 H 3.2-4.5 GM/DL TSH [place] Testing 4.08 0.35-4.94 UIU/ML Blood Gas Puncture Site LEFT RADIAL Blood Gas Patient Temperature 96.7 Arterial Blood pH 7.40 7.37-7.43 Arterial Blood Partial Pressure CO2 38 35-45 MMHG Arterial Blood Partial Pressure O2 90 79-93 MMHG Arterial Blood HCO3 23 23-27 MMOL/L Arterial Blood Total CO2 24.3 21.0-31.0 MMOL/L Arterial Blood Oxygen Saturation 98 94-100 % Arterial Blood Base Excess -1.2 -2.5-2.5 MMOL/L [place] Test YES-POS Blood Gas Ventilator Setting NO Blood Gas Inspired Oxygen 65% Urine Color OTHER H Urine Clarity CLEAR Urine pH 8 5-9 Urine Specific [place] 1.010 L 1.016-1.022 Urine Protein NEGATIVE NEGATIVE Urine Glucose (UA) NEGATIVE NEGATIVE Urine Ketones NEGATIVE NEGATIVE Urine Nitrite NEGATIVE NEGATIVE Urine Bilirubin NEGATIVE NEGATIVE Urine Urobilinogen NORMAL NORMAL MG/DL Urine Leukocyte Esterase NEGATIVE NEGATIVE Urine RBC (Auto) 1+ H NEGATIVE Urine RBC 2-5 H /HPF Urine WBC NONE /HPF Urine Crystals NONE /LPF Urine Bacteria NONE /HPF Urine Casts NONE /LPF Urine Mucus NEGATIVE /LPF Urine Culture Indicated NO Test 10/08/17 03:06 Range/Units White Blood Count 10.2 4.3-11.0 10^3/uL Red Blood Count 5.37 4.35-5.85 10^6/uL Hemoglobin 14.4 11.5-16.0 G/DL Hematocrit 43 35-52 % Mean Corpuscular Volume 81 80-99 FL Mean Corpuscular Hemoglobin 27 25-34 PG Mean Corpuscular Hemoglobin Concent 33 32-36 G/DL Red Cell Distribution Width 15.3 H 10.0-14.5 % Platelet Count 299 130-400 10^3/uL Mean Platelet Volume 9.9 7.4-10.4 FL Neutrophils (%) (Auto) 90 H 42-75 % Lymphocytes (%) (Auto) 9 L 12-44 % Monocytes (%) (Auto) 2 0-12 % Eosinophils (%) (Auto) 0 0-10 % Basophils (%) (Auto) 0 0-10 % Neutrophils # (Auto) 9.2 H 1.8-7.8 X 10^3 Lymphocytes # (Auto) 0.9 L 1.0-4.0 X 10^3 Monocytes # (Auto) 0.2 0.0-1.0 X 10^3 Eosinophils # (Auto) 0.0 0.0-0.3 10^3/uL Basophils # (Auto) 0.0 0.0-0.1 10^3/uL Sodium Level 144 135-145 MMOL/L Potassium Level 4.1 3.6-5.0 MMOL/L Chloride Level 103 98-107 MMOL/L Carbon Dioxide Level 24 21-32 MMOL/L Anion Gap 17 H 5-14 MMOL/L Blood Urea Nitrogen 22 H 7-18 MG/DL Creatinine 1.47 H 0.60-1.30 MG/DL Estimat Glomerular Filtration Rate 34 BUN/Creatinine Ratio 15 Glucose Level 204 H 70-105 MG/DL Calcium Level 11.1 H 8.5-10.1 MG/DL Total Bilirubin 1.3 H 0.1-1.0 MG/DL Aspartate Amino Transf (AST/SGOT) 22 5-34 U/L Alanine Aminotransferase (ALT/SGPT) 16 0-55 U/L Alkaline Phosphatase 54 40-136 U/L Troponin I < 0.30 <0.30 NG/ML Total Protein 8.2 6.4-8.2 GM/DL Albumin 4.8 H 3.2-4.5 GM/DL Physical Exam Vital Signs Vital Signs - First Documented 10/07/17 10/07/17 21:15 21:20 Temp 98.6 Pulse 93 Resp 28 B/P (MAP) 177/158 (164) Pulse Ox 94 O2 Delivery Nasal Cannula O2 Flow Rate 3.00 FiO2 100 Capillary Refill : Less Than 3 Seconds General Appearance: No Apparent Distress, WD/WN Eyes: Bilateral Eye Normal Inspection, Bilateral Eye PERRL, Bilateral Eye EOMI HEENT: PERRL/EOMI, TMs Normal, Normal ENT Inspection, Pharynx Normal Neck: Full Range of Motion, Normal Inspection, Non Tender, Supple, Carotid Bruit Respiratory: Chest Non Tender, Lungs Clear, Normal Breath Sounds, No Accessory Muscle Use, No Respiratory Distress Cardiovascular: No Edema, No Gallop, No JVD, No Murmur, Normal Peripheral Pulses, Systolic Murmur, Irregularly Irregular Gastrointestinal: Normal Bowel Sounds, No Organomegaly, No Pulsatile Mass, Non Tender, Soft Back: Normal Inspection, No CVA Tenderness, No Vertebral Tenderness Extremity: Normal Capillary Refill, Normal Inspection, Normal Range of Motion, Non Tender, No Calf Tenderness, No Pedal Edema Neurologic/Psychiatric: Alert, Oriented x3, No Motor/Sensory Deficits, Normal Mood/Affect Skin: Normal Color, Warm/Dry Lymphatic: No Adenopathy A/P-Cardiology Admission Diagnosis Atrial flutter Shortness of breath Hypertension Degenerative joint disease Assessment/Plan Atrial flutter with variable response, had transient episode of tachycardia with heart rate 140. Having some shortness of breath due to her tachycardia. Planning to proceed with ANGIE and electrical cardioversion. Shortness of breath, congestive heart failure, acute due to atrial flutter. Feeling better at this time. I will evaluate ANGIE Labile blood pressure. Currently controlled, takes lisinopril as needed not regularly. [id number] score of 4, yearly risk of stroke without oral anticoagulation is 4 percent. Patient will need to be on oral anticoagulation for now. Long-term plan will be based on her atrial size and monitoring her underlying rhythm Acute renal insufficiency, continue with IV fluid and monitor renal function Degenerative joint disease with arthritic disease Mild dementia History of cardiac catheterization done in 2010 showing mild coronary artery disease nonobstructive disease Clinical Quality Measures DVT/VTE Risk/Contraindication: Risk Factor Score Per Nursin RFS Level Per Nursing on Admit: 4+=Very High LUZ HARRIS MD October 08, 2017 08:00
--- NOTE | 2017-10-08 08:02 | Cardiac Procedure Note-CS/ASA ---
Pre-Procedure Note Pre-Op Procedure Note H&P Reviewed The H&P was reviewed, patient examined and no changes noted. Date H&P Reviewed: October 08, 2017 Time H&P Reviewed: 08:01 Conscious Sedation Pre-Proced Time Reviewed: 08:01 ASA Class: 3 Airway Mallampati Classification: ([place] appropriate class) I. II. III, IV Lungs Heart ASA score ASA 1: a normal healthy patient ASA 2: a patient with a mild systemic disease (mid diabetes, controlled hypertension, obesity x ASA 3: a patient with a severe systemic disease that limits activity (angina , COPD, prior Myocardial infarction) ASA 4: a patient with an incapacitating disease that is a constant threat to life (CHF, renal failure) ASA 5: a moribund patient not expected to survive 24 hrs. (ruptured aneurysm) ASA 6: a declared brain patient whose organs are being harvested. For emergent operations, add the letter E after the classification Grade 3 Sedation Plan: Analgesia, Amnesia, Plan communicated to team members, Discussed options with patient/fam, Discussed risks with patient/fam Note The patient is an appropriate candidate to undergo the planned procedure, sedation, and anesthesia. The patient immediately re-assessed prior to indication. LUZ HARRIS MD October 08, 2017 08:01
--- NOTE | 2017-10-08 08:18 | Diagnostic Imaging Report ---
INDICATION: Atrial fibrillation, congestive heart failure. TECHNIQUE: Single view chest 3:18 AM. CORRELATION STUDY: 10/07/2017 FINDINGS: Heart size remains enlarged. The severity of pulmonary vascular congestion and perihilar edema has diminished and improved since prior study. Some congestion does remain. Overall generalized improvement in aeration throughout the lung deng. Likely some degree of edema however does persist. Small effusions. More focal density of the right mid upper lung field does remain, which underlying infiltrate would be difficult to exclude. IMPRESSION: 1. Overall favorable improvement in appearance of chest with overall decreased severity of congestive heart failure. Some congestion does remain. Asymmetric density of the right mid upper lung field does persist, may reflect some asymmetric edema versus infiltrate. Dictated by: Dictated on workstation # [id number]
--- NOTE | 2017-10-08 08:23 | Cardioversion ---
Cardioversion PROCEDURE PHYSICIAN: Luz Ruvalcaba DATE OF PROCEDURE: 10/08/17 DIRECT EXTERNAL ELECTRICAL CARDIOVERSION: Indications: Atrial flutter Preoperative diagnoses: Atrial flutter Anesthesia: By Anesthesia services Complications: None Specimen: None Contrast: 0 Flouroscopy: none Procedure Details: The patient was brought the chemistry lab instructor after informed consent was taken, all the risks and complications were explained including the risk of stroke. Electrical cardioversion was carried out with anesthesia support with propofol. 120 then 150 joules of synchronized shock was delivered through external patches which promptly restored sinus rhythm, within less than a minute patient returned to atrial flutter. Conclusions: Successful electrical cardioversion in converting to sinus rhythm, patient failed to maintain sinus rhythm, returned to atrial fibrillation within the minute Final Diagnosis: Atrial flutter LUZ RUVALCABA MD October 08, 2017 08:23
[2017-10-08] MEDS ORDERED: meTOprolol 5 MG/5 ML (LOPRESSOR) VIAL IV ONE (08:30)
[2017-10-08] MEDS ORDERED: LIDOCAINE 2% VISCOUS 15 ML UDC PO ONE (08:30)
--- NOTE | 2017-10-08 08:32 | Anesthesia-General Post-Op ---
MAC Patient Condition Mental Status/LOC: Same as Preop Cardiovascular: Satisfactory Nausea/Vomiting: Absent Respiratory: Satisfactory Pain: Controlled Complications: Absent Post Op Complications Complications None Follow Up Care/Instructions Patient Instructions None needed. Anesthesiology Discharge Order Discharge Order Patient is doing well, no complaints, stable vital signs, no apparent adverse anesthesia problems. No complications reported per nursing. HEIDY STRATTON CRNA October 08, 2017 08:32
[2017-10-08] MEDS ORDERED: proPOfol 200 MG/20 ML (DIPRIVAN) VIAL IV ONE (08:36)
--- NOTE | 2017-10-08 08:36 | Anesthesia-Procedure Note ---
Procedures/Interventions Procedure Start/Stop/Diagnosis Date of Procedure: October 08, 2017 Start Time: 07:55 Referring Physician: Peg Preprocedural Diagnosis: AFIB Stop Time: 08:20 ANGIE/Cardioversion Anesthesia Type: mac ASA Class: 2 Medications Called to ICU to assist with sedation for ANGIE/Cardioversion. Sedation explained to patient, wishes to proceed. VSS upon arrival. History obtained from nurse and chart. Denture/Partial removed prior to procedure by RN. Existing high flow NC on with adequate oxygenation. Propofol 100mg IV given incrementally throughout. Pt tolerated well. Upon exiting the room, patient already awake, opens eyes, answering appropriately. RN @ bedside. Monitors and Equipment: BP Cuff - Right, Continuous EKG, IV, Pulse Oximeter, V Lead EKG HEIDY STRATTON CRNA October 08, 2017 08:36
[2017-10-08] MEDS: meTOprolol TARTRATE 25 MG (LOPRESSOR) TABLET PO SCH (09:32)
[2017-10-08] MEDS ORDERED: AMIODARONE FOR BOLUS 150 MG in D5W 100 ML IVPB 100 ML IV ONE (09:45)
[2017-10-08] MEDS ORDERED: AMIODARONE INJECTION 450 MG in D5W IV SOLUTION (EXCEL) 250 ML IV SCH (09:45)
[2017-10-08] MEDS ORDERED: ACET-2267 PO ×2 (10:25)
[2017-10-08] MEDS ORDERED: POTA10TA10 PO (10:25)
[2017-10-08] MEDS ORDERED: LISI-552 PO (10:28)
[2017-10-08] MEDS: ACETAMINOPHEN 325 MG TABLET/CAPLET (TYLENOL) PO PRN ×3 (11:28→21:16)
[2017-10-08 17:28] LABS: CALCIUM 10.3 MG/DL (8.5-10.1); CREATININE SERUM 1.65 MG/DL (0.60-1.30); MAGNESIUM 1.9 MG/DL (1.8-2.4)
[2017-10-08] MEDS ORDERED: FORTEO PO SCH (18:30)
[2017-10-08] MEDS ORDERED: PATIENT MAY USE OWN MED,SINGLE MED PO SCH (20:00)
[2017-10-08] MEDS: FORTEO PO SCH (20:45)
[2017-10-08] MEDS ORDERED: ENOXAPARIN 80 MG/0.8 ML (LOVENOX) SYR SC SCH ×2 (21:00→22:00)
[2017-10-09] VITALS (9 sets, daily range): BP systolic 87–124; BP diastolic 54–97
[2017-10-09 03:33] LABS: HEMOGLOBIN 13.2 G/DL (11.5-16.0); MEAN PLATELET VOLUME 9.7 FL (7.4-10.4); RED BLOOD COUNT 4.93 10^6/uL (4.35-5.85); RED CELL DISTRIBUTION WIDTH 15.7 % (10.0-14.5)
[2017-10-09 03:56] LABS: BILIRUBIN,TOTAL 0.8 MG/DL (0.1-1.0); CALCIUM 10.4 MG/DL (8.5-10.1); CREATININE SERUM 1.51 MG/DL (0.60-1.30); POTASSIUM 3.7 MMOL/L (3.6-5.0); TOTAL PROTEIN 6.7 GM/DL (6.4-8.2)
[2017-10-09] MEDS ORDERED: AMIODARONE FOR BOLUS 150 MG in D5W 100 ML IVPB 100 ML IV NR (07:15)
--- NOTE | 2017-10-09 07:30 | Cardiac Procedure Note-CS/ASA ---
Pre-Procedure Note Pre-Op Procedure Note H&P Reviewed The H&P was reviewed, patient examined and no changes noted. Date H&P Reviewed: October 09, 2017 Time H&P Reviewed: 07:30 Conscious Sedation Pre-Proced Time Reviewed: 07:30 ASA Class: 3 Airway Mallampati Classification: ([place] appropriate class) I. II. III, IV Lungs Heart ASA score ASA 1: a normal healthy patient ASA 2: a patient with a mild systemic disease (mid diabetes, controlled hypertension, obesity x ASA 3: a patient with a severe systemic disease that limits activity (angina , COPD, prior Myocardial infarction) ASA 4: a patient with an incapacitating disease that is a constant threat to life (CHF, renal failure) ASA 5: a moribund patient not expected to survive 24 hrs. (ruptured aneurysm) ASA 6: a declared brain patient whose organs are being harvested. For emergent operations, add the letter E after the classification Grade 3 Sedation Plan: Analgesia, Amnesia, Plan communicated to team members, Discussed options with patient/fam, Discussed risks with patient/fam Note The patient is an appropriate candidate to undergo the planned procedure, sedation, and anesthesia. The patient immediately re-assessed prior to indication. LUZ HARRIS MD October 09, 2017 07:30
--- NOTE | 2017-10-09 07:30 | Cardiology Progress Note ---
Subjective Date Seen by Provider: October 09, 2017 Time Seen by Provider: 07:28 Subjective/Events-last exam Patient is laying down in bed, feeling better, still having some leg cramps on and off. Noted to be bradycardic since receiving the beta blockers last night. Review of Systems General: No Chills, No Night Sweats, No Fatigue, No Malaise, No Appetite, No Other HEENT: No Head Aches, No Visual Changes, No Eye Pain, No Ear Pain, No Dysphasia , No Sinus Congestion, No Post Nasal Drip, No Sore Throat, No Other Pulmonary: No Dyspnea, No Cough, No Pleuritic Chest Pain, No Other Cardiovascular: No: Chest Pain, Palpitations, Orthopnea, Paroxysmal Noc. Dyspnea, Edema, Lt Headedness, Other Objective-Cardiology Exam Last Set of Vital Signs Vital Signs 10/09/17 10/09/17 04:00 07:21 Temp 97.1 Pulse 51 Resp 12 B/P (MAP) 124/67 (86) Pulse Ox 99 O2 Delivery High Flow N/C O2 Flow Rate 10.00 FiO2 45 Capillary Refill : Less Than 3 Seconds I&O Intake and Output 10/09/17 00:00 Intake Total 2940 ml Output Total 2925 ml Balance 15 ml Intake Oral 1940 ml IV Total 1000 ml Output Urine Total 2925 ml # Urine Diapers 1 # Bowel Movements 2 Daily Weight Change No General: Alert, Oriented X3, Cooperative HEENT: Atraumatic, PERRLA Neck: Supple, No JVD, No Thyromegaly Lungs: Clear to Auscultation, Normal Air Movement Heart: Normal S1, Normal S2, No Murmurs, Other (Atrial fibrillation with bradycardia) Abdomen: Normal Bowel Sounds, Soft, No Tenderness, No Hepatosplenomegaly, No Masses Extremities: No Clubbing, No Cyanosis, No Edema, Normal Pulses, No Tenderness/ Swelling Skin: No Rashes, No Breakdown, No Significant Lesion Neuro: Normal Gait, Normal Speech, Strength at 5/5 X4 Ext, Normal Tone, Sensation Intact Psych/Mental Status: Mental Status NL, Mood NL Results Lab Laboratory Tests 10/08/17 17:00 10/09/17 03:05 A/P-Cardiology Admission Diagnosis Atrial flutter Shortness of breath Hypertension Degenerative joint disease Assessment/Plan Atrial flutter with variable response, had transient episode of tachycardia with heart rate 140. Received beta blockers and continue to be bradycardic. Underwent ANGIE with cardioversion and failed to maintain sinus rhythm. I will give her a bolus of amiodarone today and attempt another electrical cardioversion and evaluate her tolerance and response. Shortness of breath, no signs of congestive heart failure, normal left ventricular systolic function, elevated BNP could be due to renal insufficiency and tachycardia. Labile blood pressure. Currently controlled, takes lisinopril as needed, I started her on beta blockers, I doubt that she will tolerate the medication long -term due to bradycardia [id number] score of 4, yearly risk of stroke without oral anticoagulation is 4 percent. Patient will need to be on oral anticoagulation for now. Long-term plan will be based on her atrial size and monitoring her underlying rhythm Acute renal insufficiency, continue with IV fluid and monitor renal function Degenerative joint disease with arthritic disease Mild dementia History of cardiac catheterization done in 2010 showing mild coronary artery disease nonobstructive disease Clinical Quality Measures DVT/VTE Risk/Contraindication: Risk Factor Score Per Nursin RFS Level Per Nursing on Admit: 4+=Very High LUZ HARRIS MD October 09, 2017 07:30
[2017-10-09] MEDS ORDERED: proPOfol 200 MG/20 ML (DIPRIVAN) VIAL IV ONE (07:48)
--- NOTE | 2017-10-09 07:57 | Physician Query Clarification ---
PQ-CHF Specificity The medical record reflects the following clinical scenario: History/Risk Factors: Atrial Flutter/Atrial Fibrillation Hypertension Clinical Findings: BNP 144.4, shortness of breath, acute CHF documented on consult. Treatment: 80mg IV Lasix Question: Can you further specify the type of Acute CHF per the clinical indicators above? Please document a response below PHYSICIAN RESPONSE Acuity: Other (list below) Type: Other (explain below) Other, clinical findings No congestive heart failure In responding to this query, please exercise your independent professional judgment. The purpose of this communication is to more accurately reflect the complexity of your patients condition. The fact that a question is asked does not imply that any particular answer is desired or expected. Thank you for your timely response to this clarification. Requestors name: Mady Ariza [facility] Phone # ext [phone] or [phone] THIS PHYSICIAN QUERY FORM IS A PERMANENT PART OF THE MEDICAL RECORD MADY ARIZA October 09, 2017 07:57 LUZ HARRIS MD October 09, 2017 09:44
--- NOTE | 2017-10-09 08:10 | Cardioversion ---
Cardioversion PROCEDURE PHYSICIAN: Luz Ruvalcaba DATE OF PROCEDURE: 10/09/17 DIRECT EXTERNAL ELECTRICAL CARDIOVERSION: Indications: Atrial flutter Preoperative diagnoses: Atrial flutter Postoperative diagnosis: Sinus rhythm, Successful Electrical Cardioversion History: Anesthesia: By Anesthesia services Complications: None Specimen: None Contrast: 0 Flouroscopy: none Procedure Details: The patient was brought the screedman/laborer after informed consent was taken, all the risks and complications were explained including the risk of stroke. Electrical cardioversion was carried out with anesthesia support with propofol. 200 joules of synchronized shock was delivered through external patches which promptly restored sinus rhythm. The patient tolerated the procedure well. Conclusions: Successful electrical cardioversion in terminating atrial flutter and restoring sinus rhythm LUZ RUVALCABA MD October 09, 2017 08:10
--- NOTE | 2017-10-09 08:14 | Anesthesia-Procedure Note ---
Procedures/Interventions Procedure Start/Stop/Diagnosis Date of Procedure: October 09, 2017 Start Time: 07:50 Referring Physician: Peg Preprocedural Diagnosis: Atrial Fibrillation Brief History Called to ICU bed for repeat cardioversion that was unsuccessful yesterday. Brief history obtained from pattern worker and RN. NPO status confirmed. O2 per NC flowing at 4 lpm. VSS. Propofol 50 mg given for procedure without complications. B/P 96/62 HR 65 SR, sat97 RR16. Left pt in care of RN, pt awake and following commands. Stop Time: 08:05 Postprocedural Diagnosis: Atrial Fibrillation PATO BURK CRNA October 09, 2017 08:14
--- NOTE | 2017-10-09 08:16 | Anesthesia-General Post-Op ---
MAC Patient Condition Mental Status/LOC: Same as Preop Cardiovascular: Satisfactory Nausea/Vomiting: Absent Respiratory: Satisfactory Pain: Controlled Complications: Absent Post Op Complications Complications None Follow Up Care/Instructions Patient Instructions None needed. Anesthesiology Discharge Order Discharge Order Patient is doing well, no complaints, stable vital signs, no apparent adverse anesthesia problems. No complications reported per nursing. PATO BURK CRNA October 09, 2017 08:16
[2017-10-09] MEDS: APIXABAN 2.5 MG (ELIQUIS) TABLET PO SCH ×2 (09:21→20:59)
--- NOTE | 2017-10-09 14:43 | History & Physical-Hospitalist ---
History of Present Illness HPI/Chief Complaint The patient is an 82-year-old white female who was admitted after she presented to the emergency room with complaints of palpitations, back pain of several days and shortness of breath. She was found to have atrial fibrillation apparently new onset with a controlled rate. There is no evidence of myocardial infarction. The chest x-ray strongly suggested interstitial edema. Her family states that she had actually had some symptoms of back pain in the 7- 10 day previous interval. Source: patient Exam Limitations: no limitations Date Seen 10/09/17 Time Seen by Provider: 14:38 Attending Physician Kristen Zurita MD PCP No,Local Physician Referring Physician Date of Admission October 07, 2017 at 22:15 Home Medications & Allergies Home Medications Reviewed patient Home Medication Reconciliation performed by pharmacy medication reconciliations orthotics technician and/or nursing. Patients Allergies have been reviewed. Allergies Allergies Coded Allergies baclofen (Verified Allergy, Unknown, 06/23/17) confusion codeine (Verified Allergy, Unknown, 06/22/17) hydrocodone (Verified Allergy, Unknown, 06/23/17) confusion Past [id number] Hx Past Med/Social Hx: Reviewed Nursing Past Med/Soc Hx Patient Social History Marrital Status: Employed/Student: retired Alcohol Use: Rarely Uses Number of Drinks Today: AA Alcohol Beverage of Choice: Beer Recreational Drug Use: No Smoking Status: Former Smoker (1/2 PPD) Former Smoker, Quit: May 08, 2013 Type Used: Cigarettes Physical Abuse Screen: No Sexual Abuse: No Recent Foreign Travel: No Contact w/other who traveled: No Recent Hopitalizations: Yes Recent Infectious Disease Expo: No Immunizations Up To Date Date of Pneumonia Vaccine: Feb 18, 2017 Date of Influenza Vaccine: Feb 18, 2017 Seasonal Allergies Seasonal Allergies: No Past Medical History Surgeries: Bladder Surgery, Gallbladder, Hysterectomy, Oophorectomy, Orthopedic Currently Using CPAP: No Currently Using BIPAP: No Neurological: Dementia : No Reproductive: Yes (U-V PROLAPSE) Sexually Transmitted Disease: No HIV/AIDS: No Female Reproductive Disorders: Denies Hysterectomy, Menopausal Genitourinary: UTI-Chronic Gastrointestinal: Chronic Constipation Musculoskeletal: Osteoporosis, Arthritis Hearing Impairment: Denies History of Blood Disorders: No Adverse Reaction to Blood Horner: No Family History FH: cancer G8 SISTER Cancer Review of Systems Constitutional: see HPI EENTM: no symptoms reported Respiratory: cough, dyspnea on exertion, short of breath Cardiovascular: palpitations Gastrointestinal: no symptoms reported Genitourinary: incontinence Musculoskeletal: no symptoms reported Skin: no symptoms reported Psychiatric/Neurological: No Symptoms Reported Physical Exam Physical Exam Vital Signs Vital Signs - First Documented 10/07/17 10/07/17 21:15 21:20 Temp 98.6 Pulse 93 Resp 28 B/P (MAP) 177/158 (164) Pulse Ox 94 O2 Delivery Nasal Cannula O2 Flow Rate 3.00 FiO2 100 Capillary Refill : Less Than 3 Seconds General Appearance: Mild Distress Eyes: Bilateral Eye Normal Inspection HEENT: Normal ENT Inspection Neck: Normal Inspection Respiratory: Decreased Breath Sounds (distant) Cardiovascular: Irregularly Irregular Gastrointestinal: Normal Bowel Sounds, No Organomegaly, No Pulsatile Mass, Non Tender, Soft Back: Normal Inspection, No CVA Tenderness, No Vertebral Tenderness Extremity: Normal Capillary Refill, Normal Inspection, Normal Range of Motion, Non Tender, No Calf Tenderness, No Pedal Edema Neurologic/Psychiatric: Alert, Oriented x3, No Motor/Sensory Deficits, Normal Mood/Affect Skin: Normal Color, Warm/Dry Lymphatic: No Adenopathy Results Results/Procedures Labs Laboratory Tests 10/07/17 21:17 10/08/17 00:57 10/08/17 03:06 10/08/17 17:00 10/09/17 03:05 Patient resulted labs reviewed. Assessment/Plan Admission Diagnosis Atrial fibrillation with controlled rate, apparently new onset. 2.COPD/ tobaccoism. 3.interstitial pulmonary edema Admission Status: Inpatient Order (span 2 midnights) Reason for Inpatient Admission: New-onset atrial fibrillation. Interstitial pulmonary edema. Assessment and Plan Rhythm control/anglican 2.diuresis Clinical Quality Measures DVT/VTE Risk/Contraindication: Risk Factor Score Per Nursin RFS Level Per Nursing on Admit: 4+=Very High SOPHIE MUHAMMAD MD October 09, 2017 14:43
[2017-10-09] MEDS: FORTEO PO SCH (20:59)
[2017-10-09] MEDS: meTOprolol TARTRATE 25 MG (LOPRESSOR) TABLET PO SCH (21:00)
[2017-10-10 00:25] VITALS: BP 134/66
[2017-10-10 03:46] VITALS: BP 124/69
[2017-10-10 08:00] VITALS: BP 132/78
[2017-10-10] MEDS: APIXABAN 2.5 MG (ELIQUIS) TABLET PO SCH (08:24)
[2017-10-10] MEDS: meTOprolol TARTRATE 25 MG (LOPRESSOR) TABLET PO SCH (08:24)
--- NOTE | 2017-10-10 09:17 | Cardiology Progress Note ---
Subjective Date Seen by Provider: October 10, 2017 Time Seen by Provider: 09:15 Subjective/Events-last exam Patient is feeling well, maintained in sinus rhythm overnight, denied any chest pain Review of Systems General: No Chills, No Night Sweats, No Fatigue, No Malaise, No Appetite, No Other HEENT: No Head Aches, No Visual Changes, No Eye Pain, No Ear Pain, No Dysphasia , No Sinus Congestion, No Post Nasal Drip, No Sore Throat, No Other Pulmonary: No Dyspnea, No Cough, No Pleuritic Chest Pain, No Other Cardiovascular: No: Chest Pain, Palpitations, Orthopnea, Paroxysmal Noc. Dyspnea, Edema, Lt Headedness, Other Objective-Cardiology Exam Last Set of Vital Signs Vital Signs 10/09/17 10/10/17 04:00 08:00 Temp 98.0 Pulse 65 Resp 20 B/P (MAP) 132/78 (96) Pulse Ox 93 O2 Delivery Room Air O2 Flow Rate 0.00 FiO2 45 Capillary Refill : Less Than 3 Seconds I&O Intake and Output 10/10/17 00:00 Intake Total 2086 ml Output Total 1975 ml Balance 111 ml Intake Oral 2086 ml Output Urine Total 1975 ml General: Alert, Oriented X3, Cooperative HEENT: Atraumatic, PERRLA Neck: Supple, No JVD, No Thyromegaly Lungs: Clear to Auscultation, Normal Air Movement Heart: Regular Rate, Normal S1, Normal S2, No Murmurs Abdomen: Normal Bowel Sounds, Soft, No Tenderness, No Hepatosplenomegaly, No Masses Extremities: No Clubbing, No Cyanosis, No Edema, Normal Pulses, No Tenderness/ Swelling Skin: No Rashes, No Breakdown, No Significant Lesion Neuro: Normal Gait, Normal Speech, Strength at 5/5 X4 Ext, Normal Tone, Sensation Intact Psych/Mental Status: Mental Status NL, Mood NL A/P-Cardiology Admission Diagnosis Atrial flutter Shortness of breath Hypertension Degenerative joint disease Assessment/Plan Atrial flutter with variable response, successful cardioversion after receiving metoprolol and a single dose of amiodarone. Currently in sinus rhythm. Continue to monitor Shortness of breath, no signs of congestive heart failure, normal left ventricular systolic function, elevated BNP could be due to renal insufficiency and tachycardia. Labile blood pressure. Currently controlled, takes lisinopril as needed, I started her on beta blockers, I doubt that she will tolerate the medication long -term due to bradycardia [id number] score of 4, yearly risk of stroke without oral anticoagulation is 4 percent. Patient will be on Eliquis 2.5 mg twice daily Acute renal insufficiency, better at this time. Continue to monitor Degenerative joint disease with arthritic disease Mild dementia History of cardiac catheterization done in 2010 showing mild coronary artery disease nonobstructive disease Okay for discharge from cardiology standpoint and arrange for follow-up as an outpatient in my office in 2 weeks Clinical Quality Measures DVT/VTE Risk/Contraindication: Risk Factor Score Per Nursin RFS Level Per Nursing on Admit: 4+=Very High LUZ HARRIS MD October 10, 2017 09:17
[2017-10-10] MEDS ORDERED: METO-333 PO (09:19)
[2017-10-10] MEDS ORDERED: APIX2.5T PO (09:19)
--- NOTE | 2017-10-10 10:56 | Discharge Summary-Hospitalist ---
Diagnosis/Chief Complaint Date of Admission October 07, 2017 at 22:15 Date of Discharge Discharge Date: October 10, 2017 Admission Diagnosis Atrial fibrillation with controlled rate, apparently new onset. 2.COPD/ tobaccoism. 3.interstitial pulmonary edema Discharge Diagnosis (1) New onset atrial fibrillation Status: Acute (2) Hypoxia Status: Resolved (3) Altered mental status, unspecified Status: Resolved (4) Dementia Status: Chronic Discharge Summary Discharge Physical Exam Allergies: Coded Allergies: baclofen (Verified Allergy, Unknown, 06/23/17) confusion codeine (Verified Allergy, Unknown, 06/22/17) hydrocodone (Verified Allergy, Unknown, 06/23/17) confusion Vitals & I&Os Vital Signs Date Time Temp Pulse Resp B/P (MAP) Pulse Ox O2 Delivery O2 Flow Rate FiO2 10/10/17 09:00 Room Air 10/10/17 08:00 98.0 65 20 132/78 (96) 93 10/10/17 08:00 0.00 10/09/17 04:00 45 General Appearance: Alert Hospital Course Hospital course: Patient had a brief hospital course she was admitted for new onset atrial fibrillation and known to the hospitalist service from prior delirium issues due to severe constipation and muscle relaxant initiation for cervical spine disease. She required close monitoring on telemetry and cardiology was consulted and overall responded to treatment rapidly she was deemed stable for discharge from cardiology service and all meds were continued and atrial fibrillation management was maintained. Labs (last 24 hrs) Patient resulted labs reviewed. Discussion & Recommendations Discharge Planning: <30 minutes discharge planning Discharge Home Medications: Active Scripts Active Metoprolol Tartrate 25 Mg Tablet 25 Mg PO BID Eliquis (Apixaban) 2.5 Mg Tablet 2.5 Mg PO BID Reported Tylenol Extra Strength (Acetaminophen) 500 Mg Tablet 500 Mg PO BID PRN Tylenol Extra Strength (Acetaminophen) 500 Mg Tablet 1,000 Mg PO DAILY TAKES 2 (500MG) TABLETS Potassium Chloride 10 Meq Tablet.er 10 Meq PO DAILY Vitamin D3 (Cholecalciferol (Vitamin D3)) 50,000 Unit Capsule 50,000 Unit PO FR Daily Multiple Vitamin (Multivitamin) 1 Each Tablet 1 Tab PO DAILY Forteo (Teriparatide) 600 Mcg/2.4 Ml Syr 20 Mcg SQ HS Calcium Magnesium Caplet (Ca Carb & Gluc/Mag Ox & Gluc) 1 Each Tablet 1 Tab PO DAILY Instructions to patient/family Please see electronic discharge instructions given to patient. Clinical Quality Measures DVT/VTE Risk/Contraindication: Risk Factor Score Per Nursin RFS Level Per Nursing on Admit: 4+=Very High Problem Qualifiers (1) Altered mental status, unspecified: Altered mental status type: delirium Qualified Codes: R41.0 - Disorientation , unspecified (2) Dementia: Dementia type: Alzheimer's disease Alzheimer's disease onset: unspecified onset Dementia behavioral disturbance: without behavioral disturbance Qualified Codes: G30.9 - Alzheimer's disease, unspecified; F02.80 - Dementia in other diseases classified elsewhere without behavioral disturbance CARLOS SAMPSON DO October 10, 2017 10:56
[2017-10-10 11:00] VITALS: BP 132/78
--- NOTE | 2017-10-11 14:25 | Physician Query Clarification ---
PQ-Further Specificity Admission/Discharge Admission Date: October 07, 2017 at 22:15 Discharge Date: October 10, 2017 at 11:11 The medical record reflects the following clinical scenario: History/Risk Factors: Atrial flutter/fibrillation, CAD , Hypertensive CKD Clinical Findings: Interstitial pulmonary edema Treatment: Diuresis Question: Can you further specify if the interstial pulmonary edema is clinically signficant and warrants coding and if so is it acute or chronic per the clinical indicators above? Please document below. 1. Acute interstitial pulmonary edema, clinically significant 2. Chronic interstitial pulmonary edema, clinically significant 3. Other, with explanation of the clinical findings. 4. Clinically undetermined, no explanation for the clinical findings. PHYSICIAN RESPONSE Can you specify per above: Clinically undetermined In responding to this query, please exercise your independent professional judgment. The purpose of this communication is to more accurately reflect the complexity of your patients condition. The fact that a question is asked does not imply that any particular answer is desired or expected. Thank you for your timely response to this clarification. Requestors name: Ariana THIS PHYSICIAN QUERY FORM IS A PERMANENT PART OF THE MEDICAL RECORD ARIANA JASSO October 11, 2017 14:25 CARLOS SAMPSON DO October 13, 2017 10:57
== END 2017-10-10 11:11 | disposition home or self-care (01) | DRG 309 ==
LOC: EDUNIT# 21:08 → ER 21:10 → UNDOADMIN 22:15 → ICU 22:15
PROVIDERS: ADMIT Family Medicine; ATTEND Family Medicine
PROC: 5A2204Z Restoration of Cardiac Rhythm, Single (ICD-10-PCS; principal; 2017-10-08)
DX: I48.92 Unspecified atrial flutter (principal); I48.91 Unspecified atrial fibrillation; J81.1 Chronic pulmonary edema; I12.9 Hypertensive chronic kidney disease with stage 1 through stage 4 chronic kidney disease, or unspecified chronic kidney disease; N18.9 Chronic kidney disease, unspecified; I25.10 Atherosclerotic heart disease of native coronary artery without angina pectoris; J44.9 Chronic obstructive pulmonary disease, unspecified; K59.09 Other constipation; Z66 Do not resuscitate; N28.9 Disorder of kidney and ureter, unspecified; G30.9 Alzheimer's disease, unspecified; F02.80 Dementia in other diseases classified elsewhere, unspecified severity, without behavioral disturbance, psychotic disturbance, mood disturbance, and anxiety; M81.0 Age-related osteoporosis without current pathological fracture; M19.91 Primary osteoarthritis, unspecified site; Z87.440 Personal history of urinary (tract) infections; Z87.891 Personal history of nicotine dependence
CPT/HCPCS: 36415; 71045; 80048; 80053; 81000; 82550; 82553; 82805; 83735; 83880; 84443; 84484; 85025; 85027; 85610; 85730; 93005; 93041; 93320; 93325; 94640; 96372; 96374; 96375